=== PATIENT | male | born 1935 | race Caucasian/White ===

== ENCOUNTER 2017-09-09 08:41 | Emergency (ER) | payer MEDICARE, BC ==
[2017-09-09] MEDS ORDERED: Aspirin 81 MG Tab.Chew PO ONE (08:57)
--- NOTE | 2017-09-09 08:59 | EDM.PDOC ---
ED HPI GENERAL MEDICAL PROBLEM - General Chief Complaint: Chest Pain Stated Complaint: [facility] Time Seen by Provider: 09/09/17 08:48 Source of Information: Reports: Patient History Limitations: Reports: No Limitations - History of Present Illness INITIAL COMMENTS - FREE TEXT/NARRATIVE: 82-year-old male presents the ED with central chest pain that radiates perhaps slightly up towards the sternal notch in his neck. Nothing through to his back or arm or shoulder. Patient was well some chest discomfort last night before going to bed but it was able to fall asleep. It is just a little heavier this morning. He has not eaten any breakfast yet. Has not taken any of his normal medications. Does have a history of GERD but no recent real problems with reflux disease. He does report that he is under a great deal of stress as of late. He has a type II diabetic controlled with metformin. Onset: Gradual Onset Date: 09/08/17 Onset Time: 21:30 Duration: Hour(s):, Constant Location: Reports: Chest (Mostly in the central chest.) Quality: Reports: Ache, Burning Severity: Moderate Improves with: Reports: None Worsens with: Reports: Movement Context: Denies: Activity, Exercise (Perhaps movement makes a difference.), Lifting, Sick Contact, Trauma, Other Associated Symptoms: Reports: Chest Pain, Malaise. 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: Other (see below) Chest Pain Score (Numeric/FACES): 5 - Related Data Allergies Allergy/AdvReac Type Severity Reaction Status Date / Time No Known Allergies Allergy Verified 09/09/17 08:46 Home Meds: Home Meds Mirtazapine [Remeron] 15 mg PO BEDTIME 09/18/14 [History] metFORMIN [Glucophage] 250 mg PO BID 09/18/14 [History] Aspirin 81 mg PO DAILY 06/20/16 [History] Colesevelam HCl [Welchol] 1,875 mg PO BID 06/20/16 [History] Docusate Sodium [DOK] 250 mg PO BID 06/20/16 [History] Fish Oil/[place]-3 Fatty Acids [Fish Oil 1,000 MG] 1,000 mg PO BID 06/20/16 [ History] Furosemide [Lasix] 20 mg PO DAILY 06/20/16 [History] Clopidogrel [Plavix] 75 mg PO DAILY 09/09/17 [History] Levothyroxine [Synthroid] 50 mcg PO ACBREAKFAST 09/09/17 [History] Sertraline [Zoloft] 25 mg PO DAILY 09/09/17 [History] Ubidecarenone [Co Q-10] 100 mg PO DAILY 09/09/17 [History] Past Medical History HEENT History: Reports: Cataract, Hard of Hearing, Other (See Below) Other HEENT History: ear aches and cleansing Cardiovascular History: Reports: High Cholesterol, Hypertension Other Cardiovascular History: Hx of Carotid Artery Disease with Lt. 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 Endocrine/Metabolic History: Reports: Diabetes, Type II - Infectious Disease History Infectious Disease History: Reports: Measles - Past Surgical History Cardiovascular Surgical History: Reports: Carotid Endarterectomy GI Surgical History: Reports: Other (See Below) Musculoskeletal Surgical History: Reports: Hip Replacement, Shoulder Surgery Social & Family History - Family History Family Medical History: Noncontributory - Tobacco Use Smoking Status *Q: Former Smoker Years of Tobacco use: 17 Used Tobacco, but Quit: Yes Month Tobacco Last Used: 53 years ago Second Hand Smoke Exposure: No - Alcohol Use Days Per Week of Alcohol Use: 1 Number of Drinks Per Day: 1 Total Drinks Per Week: 1 - Recreational Drug Use Recreational Drug Use: No - Living Situation & Occupation Living situation: Reports: 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 Denies : Fever, Chills, Weight Loss HEENT: Reports: Glasses Respiratory: Denies: Shortness of Breath, Wheezing, Pleuritic Chest Pain, Cough , Sputum, Hemoptysis, Other Cardiovascular: Reports: Chest Pain, Blood Pressure Problem (See history present illness), Dyspnea on Exertion (Mild in both lower extremities), Edema. Denies: Claudication, Lightheadedness, Orthopnea ( controlled with medication), Palpitations ( chronically) Endocrine: Reports: Fatigue GI/Abdominal: Reports: Constipation : Reports: Frequency, Other (nocturia 3) Musculoskeletal: Reports: Neck Pain, Back Pain Skin: Reports: No Symptoms Neurological: Denies: Confusion, Dizziness, Headache, Paresthesia, Pre-Existing Deficit, Seizure, Syncope, Tremors, Trouble Speaking, Difficulty Walking, Weakness Psychiatric: Reports: Anxiety Hematologic/Lymphatic: Reports: No Symptoms Immunologic: Reports: No Symptoms ED EXAM, GENERAL - Physical Exam Exam: See Below Exam Limited By: No Limitations General Appearance: Alert, WD/WN, Anxious (Mildly anxious.) Eye Exam: Bilateral Eye: Normal Inspection Throat/Mouth: Normal Inspection, Normal Lips, Normal Oropharynx Head: Atraumatic, Normocephalic Neck: Normal Inspection, Supple, Non-Tender, Full Range of Motion. No: Lymphadenopathy (L), Lymphadenopathy (R), Thyromegaly Respiratory/Chest: No Respiratory Distress, Lungs Clear, Decreased Breath Sounds. No: Rales, Rhonchi (Decreased breath sounds lower 20% of lung [place].) , Wheezing Cardiovascular: Regular Rate, Rhythm, No Edema, No Gallop, No Murmur, No Rub. No: Normal Peripheral Pulses Peripheral Pulses: 1+: Posterior Tibial (L), Posterior Tibial (R), Dorsalis Pedis (L), Dorsalis Pedis (R) GI/Abdominal: Other (Abdomen is moderately obese and distended. Is firm to palpation. No previous cholecystectomy scar noted. Nontender. Bowel sounds are normal.) Back Exam: Normal Inspection, Full Range of Motion. No: CVA Tenderness (L), CVA Tenderness (R) Extremities: Normal Inspection, Normal Range of Motion, Non-Tender, Pedal Edema Neurological: Alert, Oriented (2+ pitting edema bilaterally.), CN II-XII Intact , Normal Cognition Psychiatric: Normal Affect, Normal Mood Skin Exam: Warm, Dry, Intact, Normal Color, No Rash EKG INTERPRETATION EKG Date: 09/09/17 Time: 08:45 Rhythm: NSR Rate (Beats/Min): 72 [place]: Normal P-Wave: Present (First-degree AV block.) QRS: Other (Early R-wave transition with poor R-wave progression. There is Q waves in leads 3 and perhapnear Q-wave in aVF consider an old infarction in the inferior wall. Decreased voltage throughout the limb leads. Abnormal ECG.) Course - Vital Signs Last Recorded V/S: Last Vital Signs Temp 35.8 C 09/09/17 08:46 Pulse 67 09/09/17 11:00 Resp 14 09/09/17 11:00 BP 126/75 09/09/17 10:46 Pulse Ox 95 09/09/17 11:00 - Orders/Labs/Meds Orders: Active Orders 24 hr Category Date Time Status EKG Documentation Completion [RC] STAT Care 09/09/17 08:58 Active Chest 1V Frontal [CR] Stat Exams 09/09/17 08:58 Taken Sodium Chloride 0.9% [Normal Saline] 1,000 ml Med 09/09/17 09:00 Active IV ASDIRECTED Medication Orders Sodium Chloride (Normal Saline) 1,000 mls @ 100 mls/hr IV ASDIRECTED SURESH Last Admin: 09/09/17 10:14 Dose: 100 mls/hr Labs: Laboratory Tests 09/09/17 09/09/17 09/09/17 Range/Units 08:50 08:50 08:50 WBC 5.38 (4.23-9.07) K/mm3 RBC 4.58 L (4.63-6.08) M/mm3 Hgb 15.2 (13.7-17.5) gm/L Hct 44.4 (40.1-51.0) % MCV 96.9 H (79.0-92.2) fl MCH 33.2 H (25.7-32.2) pg MCHC 34.2 (32.2-35.5) g/dl RDW Std Deviation 48.3 H (35.1-43.9) fL Plt Count 155 L (163-337) K/mm3 MPV 11.2 (9.4-12.3) fl Neutrophils % (Manual) 45 (40-60) % Band Neutrophils % 0 (0-10) % Lymphocytes % (Manual) 40 (20-40) % Atypical Lymphs % 0 % Monocytes % (Manual) 8 (2-10) % Eosinophils % (Manual) 6 (0.8-7.0) % Basophils % (Manual) 1 (0.2-1.2) Platelet Estimate Adequate RBC Morph Comment Normal PT 10.2 (8.0-13.0) SECONDS INR 0.94 Sodium 142 (136-145) mEq/L Potassium 4.3 (3.5-5.1) mEq/L Chloride 107 (98-107) mEq/L Carbon Dioxide 26 (21-32) mEq/L Anion Gap 13.3 (5-15) BUN 14 (7-18) mg/dL Creatinine 1.2 (0.7-1.3) mg/dL Est Cr Clr Drug Dosing TNP Estimated GFR (MDRD) 58 (>60) mL/min BUN/Creatinine Ratio 11.7 L (14-18) Glucose 156 H (83-115) mg/dL Calcium 9.8 (8.5-10.1) mg/dL Magnesium 1.8 (1.8-2.4) mg/dl Total Bilirubin 0.7 (0.2-1.0) mg/dL AST 29 (15-37) U/L ALT 40 (16-63) U/L Alkaline Phosphatase 63 (46-116) U/L CK-MB (CK-2) 1.7 (0-3.6) ng/ml Troponin I < 0.017 (0.00-0.056) ng/mL C-Reactive Protein 0.5 (<1.0) mg/dL NT-Pro-B Natriuret Pep 48 (0-450) pg/mL Total Protein 6.9 (6.4-8.2) g/dl Albumin 3.6 (3.4-5.0) g/dl Globulin 3.3 gm/dL Albumin/Globulin Ratio 1.1 (1-2) Meds: Medications Generic Name Dose Route Start Last Admin Trade Name Freq PRN Reason Stop Dose Admin Sodium Chloride 1,000 mls @ 100 mls/hr 09/09/17 09:00 09/09/17 10:14 Normal Saline IV 100 mls/hr ASDIRECTED SURESH Administration Discontinued Medications Generic Name Dose Route Start Last Admin Trade Name Freq PRN Reason Stop Dose Admin Aspirin 324 mg 09/09/17 08:57 09/09/17 10:12 Aspirin PO 09/09/17 08:58 324 mg ONETIME ONE Administration Nitroglycerin/Dextrose 25 mg in 250 mls @ 6 mls/hr 09/09/17 09:00 09/09/17 10 :15 Nitroglycerin 25 Mg/D5w 250 Ml IV 10 mcg/min TITRATE SURESH 6 mls/hr 10 MCG/MIN Administration - Radiology Interpretation Free Text/Narrative:: 82-year-old male presents the ED for evaluation of central chest pain. Examination is normal. ECG shows sinus rhythm at 72/m with early R-wave transition and poor R-wave progression. There is a Q-wave in 3 and near Q-wave in aVF suggesting possibility of an old inferior wall myocardial infarction. No acute ischemic changes are identified. There is decreased voltage throughout the limb leads due to thick chest. Plan IV normal saline at 150 mils per hour. Routine labs including cardiac markers and a chest x-ray to be done. Will be given aspirin 325 mg chewed and nitroglycerin drip will be started at 10 mcg/m. - Re-Assessments/Exams Free Text/Narrative Re-Assessment/Exam: 09/09/17 10:20 Lab reveals a white count of 5.38 with a hemoglobin of 15.2 MCV is slightly elevated at 96.9 platelet count 155,000. Differentials 45% neutrophils no bands cells. PT is 10.2 with INR of 0.94. Sodium 142 potassium 4.3. Toward 17 bicarbonate 26. And a gap is 13.3. Creatinine is 1.2 with an E GFR of 58.. Glucose is 156. Calcium 9.8 magnesium low normal at 1.8. Liver function normal. CK-MB fraction is 1.7 with a troponin I of less than 0.017. C- reactive protein is less than 0.5 BNP is only 48. Chest x-ray reveals a tortuous thoracic aorta. Rotated slightly to the right side. There is blunting of both costophrenic angle suggesting mild small pleural effusions. There is mild cardiomegaly. Nitro drip will be discontinued at this time. 09/09/17 10:41 reports no chest pain at this time. Will discontinue the nitroglycerin drip since enzymes are normal and chest pain was there since last night essentially he is ruled out. I will have him up walking the hallway to see we can make the chest pain worse case he has an unstable angina problem. Impression is that this is most likely stress related and perhaps some GI relationship. He has a issue with chronic constipation and is quite obese. It is quite possible that he has a hiatal hernia. 09/09/17 11:24 he walked while in the hallway with no recurrence of chest pain off the nitro drip. Will be discharged home at this time. 09/09/17 11:25 Departure - Departure Time of Disposition: 11:16 Disposition: Home, Self-Care 01 Condition: Fair Clinical Impression: Non-cardiac chest pain Instructions: Nonspecific Chest Pain Referrals: Gerardo Jesus MD [Primary Care Provider] - Forms: ED Department Discharge Additional Instructions: Evaluation the emergency room today in regards to central chest pressure discomfort first noted last night but still present this morning and perhaps a little bit worse. Therefore complete cardiac workup was carried out . It turned out to be good news in terms of normal ECG chest x-ray reveals a slightly enlarged heart at no extra fluid within the lungs and no signs of heart attack by cardiac markers. Therefore the chest pain is not of heart origin. The lungs themselves appear to be clear. As you mentioned current level of stress is very high and may be contributing to chest pain since are no signs or symptoms of estrogen soft to reflux disease to be causing central chest pain etc. Monitor how often the chest pain comes and if it continues follow-up with your personal physician is advised - My Orders Last 24 Hours: My Active Orders 09/09/17 08:58 EKG Documentation Completion [RC] STAT Chest 1V Frontal [CR] Stat 09/09/17 09:00 Sodium Chloride 0.9% [Normal Saline] 1,000 ml IV ASDIRECTED - Assessment/Plan Last 24 Hours: My Active Orders 09/09/17 08:58 EKG Documentation Completion [RC] STAT Chest 1V Frontal [CR] Stat 09/09/17 09:00 Sodium Chloride 0.9% [Normal Saline] 1,000 ml IV ASDIRECTED
[2017-09-09] MEDS ORDERED: Sodium Chloride 0.9% 1,000 ML IV SCH (09:00)
[2017-09-09] MEDS ORDERED: Nitroglycerin/D5W 25 MG/250 ML BOTTLE IV SCH (09:00)
[2017-09-09 11:10] VITALS: BP 126/75
--- NOTE | 2017-09-09 11:57 | CR ---
Chest: Portable view of the chest was obtained. Comparison: Prior chest x-ray of 06/20/16. Heart size at the upper limits of normal. Tortuous thoracic aorta is seen. Lungs are clear without acute infiltrates. Bony structures are grossly intact. Impression: 1. Nothing acute is seen on portable chest x-ray. Diagnostic code #1
== END 2017-09-09 11:32 | disposition home or self-care (01) ==
LOC: JD.ED 08:41 → SUPCPDRO 08:41 → JD.ED 11:32
DX: R07.89 Other chest pain (principal); I10 Essential (primary) hypertension; E11.9 Type 2 diabetes mellitus without complications; Z79.82 Long term (current) use of aspirin; Z79.899 Other long term (current) drug therapy; Z87.891 Personal history of nicotine dependence
CPT/HCPCS: 36415; 71010; 80053; 82553; 83735; 83880; 84484; 85025; 85610; 86140; 93005; 96361; 96365; 99285; A9270; J7040; 93010; 99284

== ENCOUNTER 2018-02-15 14:02 | Emergency (ER) | payer MEDICARE, BC ==
[2018-02-15 14:13] VITALS: BP 155/70
[2018-02-15] MEDS ORDERED: Sodium Chloride 0.9% 10 ML Syringe FLUSH PRN (14:21)
--- NOTE | 2018-02-15 16:00 | EDM.PDOC ---
ED HPI GENERAL MEDICAL PROBLEM - General Chief Complaint: Chest Pain Stated Complaint: RESPIRATORY ISSUES Time Seen by Provider: 02/15/18 14:03 Source of Information: Reports: Patient, Family History Limitations: Reports: No Limitations - History of Present Illness INITIAL COMMENTS - FREE TEXT/NARRATIVE: The patient presents with chest pain and shortness of breath. He says the increased shortness of breath has been going on for a few months. Five days ago he noticed some heaviness in the chest that comes and goes. He also has a slight cough with some phlegm. He has no fever or chills but he is worried this is like pneumonia that he had before. He has no swelling or pain in his legs. He has no abdominal pain nausea or vomiting. Onset: Gradual Duration: Week(s): Location: Reports: Chest Quality: Reports: Other (Heaviness) Severity: Mild Improves with: Reports: None Worsens with: Reports: None Associated Symptoms: Reports: Chest Pain, Cough, cough w sputum, Shortness of Breath. Denies: Fever/Chills, Headaches, Nausea/Vomiting Chest Pain Score (Numeric/FACES): 5 - Related Data Allergies Allergy/AdvReac Type Severity Reaction Status Date / Time atorvastatin [From Lipitor] Allergy Other Verified 02/15/18 14:38 rosuvastatin [From Crestor] Allergy Other Verified 02/15/18 14:38 Home Meds: Home Meds Mirtazapine [Remeron] 15 mg PO BEDTIME 09/18/14 [History] metFORMIN [Glucophage] 250 mg PO BID 09/18/14 [History] Aspirin 81 mg PO DAILY 06/20/16 [History] Colesevelam HCl [Welchol] 3 tab PO BID 06/20/16 [History] Docusate Sodium [DOK] 250 mg PO BID 06/20/16 [History] Fish Oil/[place]-3 Fatty Acids [Fish Oil 1,000 MG] 1,000 mg PO BID 06/20/16 [ History] Furosemide [Lasix] 20 mg PO DAILY 06/20/16 [History] Clopidogrel [Plavix] 75 mg PO DAILY 09/09/17 [History] Levothyroxine [Synthroid] 50 mcg PO ACBREAKFAST 09/09/17 [History] Sertraline [Zoloft] 25 mg PO DAILY 09/09/17 [History] Ubidecarenone [Co Q-10] 100 mg PO DAILY 09/09/17 [History] Multivitamin [Multivitamins] 1 tab PO DAILY 02/15/18 [History] Nitroglycerin 0.4 g SL ASDIRECTED PRN 02/15/18 [History] Polyethylene Glycol 3350 [MiraLAX] 1 - 2 tbsp PO DAILY PRN 02/15/18 [History] Rosuvastatin [Crestor] 5 mg PO MOWEFR 02/15/18 [History] Past Medical History HEENT History: Reports: Cataract, Hard of Hearing, Other (See Below) Other HEENT History: ear aches and cleansing Cardiovascular History: Reports: High Cholesterol, Hypertension Other Cardiovascular History: Hx of Carotid Artery Disease with Lt. 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 Endocrine/Metabolic History: Reports: Diabetes, Type II - Infectious Disease History Infectious Disease History: Reports: Measles - Past Surgical History Head Surgeries/Procedures: Reports: None Cardiovascular Surgical History: Reports: Carotid Endarterectomy GI Surgical History: Reports: Other (See Below) Musculoskeletal Surgical History: Reports: Hip Replacement, Shoulder Surgery Social & Family History - Family History Family Medical History: Noncontributory - Tobacco Use Smoking Status *Q: Former Smoker Years of Tobacco use: 17 Used Tobacco, but Quit: Yes Month/Year Tobacco Last Used: 54 years ago Second Hand Smoke Exposure: No - Caffeine Use Caffeine Use: Reports: None - Alcohol Use Days Per Week of Alcohol Use: 1 Number of Drinks Per Day: 1 Total Drinks Per Week: 1 - Recreational Drug Use Recreational Drug Use: No - Living Situation & Occupation 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 situation: 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: 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 - Review of Systems Review Of Systems: See Below Constitutional: Reports: No Symptoms HEENT: Reports: No Symptoms Respiratory: Reports: Shortness of Breath, Cough, Sputum Cardiovascular: Reports: Chest Pain Endocrine: Reports: No Symptoms GI/Abdominal: Reports: No Symptoms : Reports: No Symptoms Musculoskeletal: Reports: No Symptoms ED EXAM, GENERAL - Physical Exam Exam: See Below Exam Limited By: No Limitations General Appearance: Alert, No Apparent Distress Ears: Normal External Exam Nose: Normal Inspection Head: Atraumatic, Normocephalic Neck: Normal Inspection Respiratory/Chest: No Respiratory Distress, Lungs Clear, Normal Breath Sounds Cardiovascular: Regular Rate, Rhythm, No Edema, No Murmur GI/Abdominal: Soft, Non-Tender, No Organomegaly, No Mass Back Exam: Normal Inspection Extremities: Normal Inspection EKG INTERPRETATION EKG Date: 02/15/18 Time: 14:18 Rhythm: NSR Rate (Beats/Min): 65 [place]: Normal P-Wave: Present QRS: Normal ST-T: Normal QT: Normal Course - Vital Signs Last Recorded V/S: Last Vital Signs Temp 97 F 02/15/18 14:09 Pulse 66 02/15/18 14:09 Resp 20 02/15/18 14:09 BP 155/70 H 02/15/18 14:09 Pulse Ox 98 02/15/18 14:09 - Orders/Labs/Meds Orders: Active Orders 24 hr Category Date Time Status Cardiac Monitoring [RC] . DIRECTED Care 02/15/18 14:21 Active EKG Documentation Completion [RC] STAT Care 02/15/18 14:22 Active Oxygen Therapy [RC] PRN Care 02/15/18 14:21 Active Peripheral IV Care [RC] . DIRECTED Care 02/15/18 14:22 Active Chest 1V Frontal [CR] Stat Exams 02/15/18 14:22 Taken Sodium Chloride 0.9% [Saline Flush] Med 02/15/18 14:21 Active 10 ml FLUSH ASDIRECTED PRN Peripheral IV Insertion Adult [OM.PC] Stat Oth 02/15/18 14:21 Ordered Medication Orders Sodium Chloride (Saline Flush) 10 ml FLUSH ASDIRECTED PRN PRN Reason: Keep Vein Open Last Admin: 02/15/18 14:35 Dose: 10 ml Labs: Laboratory Tests 02/15/18 02/15/18 02/15/18 Range/Units 14:30 14:30 14:30 WBC 4.12 L (4.23-9.07) K/mm3 RBC 4.17 L (4.63-6.08) M/mm3 Hgb 13.7 (13.7-17.5) gm/L Hct 40.8 (40.1-51.0) % MCV 97.8 H (79.0-92.2) fl MCH 32.9 H (25.7-32.2) pg MCHC 33.6 (32.2-35.5) g/dl RDW Std Deviation 48.2 H (35.1-43.9) fL Plt Count 143 L (163-337) K/mm3 MPV 11.0 (9.4-12.3) fl Neut % (Auto) 38.1 (34.0-67.9) % Lymph % (Auto) 37.1 (21.8-53.1) % [place] % (Auto) 18.2 H (5.3-12.2) % Eos % (Auto) 5.6 (0.8-7.0) Baso % (Auto) 1.0 (0.1-1.2) % Neut # (Auto) 1.57 L (1.78-5.38) K/mm3 Lymph # (Auto) 1.53 (1.32-3.57) K/mm3 [place] # (Auto) 0.75 (0.30-0.82) K/mm3 Eos # (Auto) 0.23 (0.04-0.54) K/mm3 Baso # (Auto) 0.04 (0.01-0.08) K/mm3 Manual Slide Review Normal smear Sodium 139 (136-145) mEq/L Potassium 4.2 (3.5-5.1) mEq/L Chloride 105 (98-107) mEq/L Carbon Dioxide 25 (21-32) mEq/L Anion Gap 13.2 (5-15) BUN 17 (7-18) mg/dL Creatinine 1.2 (0.7-1.3) mg/dL Est Cr Clr Drug Dosing 46.64 mL/min Estimated GFR (MDRD) 58 (>60) mL/min BUN/Creatinine Ratio 14.2 (14-18) Glucose 197 H (83-115) mg/dL Calcium 9.3 (8.5-10.1) mg/dL Total Bilirubin 0.5 (0.2-1.0) mg/dL AST 30 (15-37) U/L ALT 36 (16-63) U/L Alkaline Phosphatase 57 (46-116) U/L Troponin I < 0.017 (0.00-0.056) ng/mL NT-Pro-B Natriuret Pep 63 (0-450) pg/mL Total Protein 6.3 L (6.4-8.2) g/dl Albumin 3.4 (3.4-5.0) g/dl Globulin 2.9 gm/dL Albumin/Globulin Ratio 1.2 (1-2) Meds: Medications Generic Name Dose Route Start Last Admin Trade Name Darvinq PRN Reason Stop Dose Admin Sodium Chloride 10 ml 02/15/18 14:21 02/15/18 14:35 Saline Flush FLUSH 10 ml ASDIRECTED PRN Administration Keep Vein Open - Re-Assessments/Exams Free Text/Narrative Re-Assessment/Exam: 02/15/18 16:02 I ordered an IV saline lock, EKG, CXR, and labs. His EKG shows a NSR with no acute changes. His CXR shows cardiomegaly with no congestive changes or infiltrates. His WBC was low at 4.12. His platelet count was a little low at 143. His CMP looks good. His troponin is negative. He was telling me later that he has been blanking out in conversations at time and he feels some numbness around his lips at times. 02/15/18 16:[address] shows generalized atrophy. 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 No acute intracranial abnormality is identified. He feels better. I will discharge him home and follow up with Dr Jesus. Please send a copy of this dictation to Dr Jesus. Departure - Departure Time of Disposition: 16:45 Disposition: Home, Self-Care 01 Condition: Good Clinical Impression: Atypical chest pain, Shortness of breath Referrals: Gerardo Jesus MD [Primary Care Provider] - 1 Week Forms: ED Department Discharge Additional Instructions: Take your medication as prescribed. Follow up with Dr Jesus. Please return if you are worse. - My Orders Last 24 Hours: My Active Orders 02/15/18 14:21 Cardiac Monitoring [RC] . DIRECTED Oxygen Therapy [RC] PRN Sodium Chloride 0.9% [Saline Flush] 10 ml FLUSH ASDIRECTED PRN Peripheral IV Insertion Adult [OM.PC] Stat 02/15/18 14:22 EKG Documentation Completion [RC] STAT Peripheral IV Care [RC] . DIRECTED Chest 1V Frontal [CR] Stat - Assessment/Plan Last 24 Hours: My Active Orders 02/15/18 14:21 Cardiac Monitoring [RC] . DIRECTED Oxygen Therapy [RC] PRN Sodium Chloride 0.9% [Saline Flush] 10 ml FLUSH ASDIRECTED PRN Peripheral IV Insertion Adult [OM.PC] Stat 02/15/18 14:22 EKG Documentation Completion [RC] STAT Peripheral IV Care [RC] . DIRECTED Chest 1V Frontal [CR] Stat
--- NOTE | 2018-02-15 16:20 | CT ---
Head CT Technique: Multiple axial sections through the brain were obtained. Intravenous contrast was not utilized. Comparison: Prior MRI brain of 06/21/[address] exam of 06/20/16. Old white matter infarct is identified on the left side which appears stable from previous exam. Old lacunar infarct is noted within the white matter within the right frontal region adjacent to the frontal horn. Ventricles are moderately prominent out of proportion to the sulci over the convexities. This is likely due to more central atrophy which is a stable finding. No other abnormal parenchymal densities are seen. No evidence of intracranial hemorrhage. No midline shift or mass effect is seen. No acute calvarial abnormality is seen. Visualized sinus. Sinuses are clear. Impression: 1. Generalized atrophy as described above. 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 No acute intracranial abnormality is identified. Diagnostic code #2
--- NOTE | 2018-02-16 07:36 | CR ---
Chest: Frontal view of the chest was obtained. Comparison: Prior chest x-ray of 09/18/14 and 06/20/16. Heart size within normal limits for technique. Tortuous thoracic aorta is seen. Lungs are clear. Bony structures are grossly intact. Impression: 1. Nothing acute is seen. No appreciable change is seen from prior chest x-ray. Diagnostic code #2
== END 2018-02-15 17:02 | disposition home or self-care (01) ==
LOC: JD.ED 14:02
DX: R07.89 Other chest pain (principal); R06.02 Shortness of breath; E78.00 Pure hypercholesterolemia, unspecified; I10 Essential (primary) hypertension; E11.9 Type 2 diabetes mellitus without complications; Z88.8 Allergy status to other drugs, medicaments and biological substances; Z79.84 Long term (current) use of oral hypoglycemic drugs; Z79.82 Long term (current) use of aspirin; Z79.899 Other long term (current) drug therapy; Z87.891 Personal history of nicotine dependence; R20.0 Anesthesia of skin
CPT/HCPCS: 36415; 70450; 71045; 80053; 83880; 84484; 85025; 93005; 99285; J7050; 93010; 99284-25

== ENCOUNTER 2018-10-25 10:41 | Emergency (ER) | payer MEDICARE, BC ==
[2018-10-25 10:54] VITALS: BP 154/84
--- NOTE | 2018-10-25 11:15 | EDM.PDOC ---
ED HPI GENERAL MEDICAL PROBLEM - General Chief Complaint: Chest Pain Stated Complaint: CHEST PAIN Time Seen by Provider: 10/25/18 10:51 Source of Information: Reports: Patient, RN Notes Reviewed History Limitations: Reports: No Limitations - History of Present Illness INITIAL COMMENTS - FREE TEXT/NARRATIVE: Patient is an 83 year old male who is a resident of [facility], that presents to the ED via family members for the evaluation of chest pressure. He notes this to be in the middle of his chest. It is not necessarily painful, just feels like pressure. This does not radiate anywhere. He states that when he burps it makes it feel better. There is nothing that really makes this worse, although it is more bothersome in the AM after waking and gets better as the day goes on. This has been going on for around 6 months. He states that he sees Dr. Gerardo Jesus as a PCP and he has recently stopped most of his medications; which include levothyroxine, metformin, etc. He denies any fever/chills, nausea/vomiting/diarrhea, abdominal pain, or shortness of breath. He states that he feels a little constipated as well. - Related Data Allergies Allergy/AdvReac Type Severity Reaction Status Date / Time atorvastatin [From Lipitor] Allergy Other Verified 02/15/18 14:38 rosuvastatin [From Crestor] Allergy Other Verified 02/15/18 14:38 Home Meds: Home Meds Aspirin 81 mg PO DAILY 06/20/16 [History] Docusate Sodium [DOK] 250 mg PO BID 06/20/16 [History] Fish Oil/[place]-3 Fatty Acids [Fish Oil 1,000 MG] 1,000 mg PO BID 06/20/16 [ History] Ubidecarenone [Co Q-10] 100 mg PO DAILY 09/09/17 [History] Multivitamin [Multivitamins] 1 tab PO DAILY 02/15/18 [History] Polyethylene Glycol 3350 [MiraLAX] 1 - 2 tbsp PO DAILY PRN 02/15/18 [History] Rosuvastatin [Crestor] 10 mg PO MOWEFR 02/15/18 [History] Past Medical History HEENT History: Reports: Cataract, Hard of Hearing, Other (See Below) Other HEENT History: ear aches and cleansing Cardiovascular History: Reports: High Cholesterol, Hypertension Other Cardiovascular History: Hx of Carotid Artery Disease with Lt. 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 Endocrine/Metabolic History: Reports: Diabetes, Type II, Hypothyroidism Hematologic History: Reports: Anticoagulation Therapy - Infectious Disease History Infectious Disease History: Reports: Measles - Past Surgical History Head Surgeries/Procedures: Reports: None Cardiovascular Surgical History: Reports: Carotid Endarterectomy GI Surgical History: Reports: Other (See Below) Musculoskeletal Surgical History: Reports: Hip Replacement, Shoulder Surgery Social & Family History - Family History Family Medical History: Noncontributory - Caffeine Use Caffeine Use: Reports: None - Living Situation & Occupation Living situation: Reports: 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 - Review of Systems Review Of Systems: See Below Constitutional: Denies: Fever, Chills HEENT: Reports: No Symptoms Respiratory: Denies: Shortness of Breath, Cough Cardiovascular: Reports: Chest Pain (mid sternal to epigastric pain) Endocrine: Reports: No Symptoms GI/Abdominal: Reports: No Symptoms : Reports: No Symptoms Musculoskeletal: Reports: No Symptoms Skin: Reports: No Symptoms Neurological: Reports: No Symptoms Psychiatric: Reports: No Symptoms Hematologic/Lymphatic: Reports: No Symptoms Immunologic: Reports: No Symptoms ED EXAM, GENERAL - Physical Exam Exam: See Below Exam Limited By: No Limitations General Appearance: Alert, WD/WN, No Apparent Distress Eye Exam: Bilateral Eye: EOMI, Normal Inspection, PERRL Ears: Normal External Exam Nose: Normal Inspection Throat/Mouth: Normal Inspection, Normal Oropharynx, No Airway Compromise Head: Atraumatic, Normocephalic Neck: Normal Inspection Respiratory/Chest: No Respiratory Distress, Lungs Clear, Normal Breath Sounds, No Accessory Muscle Use, Chest Non-Tender Cardiovascular: Normal Peripheral Pulses, Regular Rate, Rhythm, No Edema, No JVD , No Murmur GI/Abdominal: Normal Bowel Sounds, Soft, No Mass, Distended (mildly, but he states this is normal for him), Tender (over epigastrium). No: Guarding, Rigid , Rebound Extremities: Normal Inspection, Normal Capillary Refill Neurological: Alert, Oriented, Normal Cognition, No Motor/Sensory Deficits Psychiatric: Normal Affect, Normal Mood Skin Exam: Warm, Dry, Intact, Normal Color, No Rash Lymphatic: No Adenopathy EKG INTERPRETATION EKG Date: 10/25/18 Time: 10:49 Rhythm: NSR Rate (Beats/Min): 72 [place]: Normal P-Wave: Present QRS: Normal ST-T: Normal QT: Normal EKG Interpretation Comments: early r wave transition, consider RVH, 1st degree AV block, no acute ischemic changes. Reviewed with Dr. King Course - Vital Signs Last Recorded V/S: Last Vital Signs Temp 98.1 F 10/25/18 10:49 Pulse 75 10/25/18 10:49 Resp 17 10/25/18 10:49 BP 154/84 H 10/25/18 10:49 Pulse Ox 98 10/25/18 10:49 - Orders/Labs/Meds Orders: Active Orders 24 hr Category Date Time Status EKG Documentation Completion [RC] STAT Care 10/25/18 10:55 Active Labs: Laboratory Tests 10/25/18 10/25/18 10/25/18 Range/Units 11:22 11:22 11:22 WBC 4.00 L (4.23-9.07) K/mm3 RBC 4.60 L (4.63-6.08) M/mm3 Hgb 14.9 (13.7-17.5) gm/L Hct 44.9 (40.1-51.0) % MCV 97.6 H (79.0-92.2) fl MCH 32.4 H (25.7-32.2) pg MCHC 33.2 (32.2-35.5) g/dl RDW Std Deviation 49.1 H (35.1-43.9) fL Plt Count 153 L (163-337) K/mm3 MPV 11.3 (9.4-12.3) fl Neutrophils % (Manual) 51 (40-60) % Band Neutrophils % 0 (0-10) % Lymphocytes % (Manual) 27 (20-40) % Atypical Lymphs % 6 % Monocytes % (Manual) 11 H (2-10) % Eosinophils % (Manual) 4 (0.8-7.0) % Basophils % (Manual) 1 (0.2-1.2) Platelet Estimate Decreased Plt Morphology Comment Normal RBC Morph Comment Normal PT 10.4 (9.5-12.1) SECONDS INR 0.95 APTT 25 (24-31) SECONDS D-Dimer, Quantitative 0.92 H (0.19-0.50) mg/L Sodium 139 (136-145) mEq/L Potassium 4.3 (3.5-5.1) mEq/L Chloride 105 (98-107) mEq/L Carbon Dioxide 25 (21-32) mEq/L Anion Gap 13.3 (5-15) BUN 21 H (7-18) mg/dL Creatinine 1.2 (0.7-1.3) mg/dL Est Cr Clr Drug Dosing 47.31 mL/min Estimated GFR (MDRD) 58 (>60) mL/min BUN/Creatinine Ratio 17.5 (14-18) Glucose 288 H (83-115) mg/dL Calcium 9.9 (8.5-10.1) mg/dL Total Bilirubin 0.5 (0.2-1.0) mg/dL AST 19 (15-37) U/L ALT 30 (16-63) U/L Alkaline Phosphatase 71 (46-116) U/L Troponin I < 0.017 (0.00-0.056) ng/mL NT-Pro-B Natriuret Pep (0-450) pg/mL Total Protein 6.6 (6.4-8.2) g/dl Albumin 3.6 (3.4-5.0) g/dl Globulin 3.0 gm/dL Albumin/Globulin Ratio 1.2 (1-2) 10/25/18 Range/Units 11:22 WBC (4.23-9.07) K/mm3 RBC (4.63-6.08) M/mm3 Hgb (13.7-17.5) gm/L Hct (40.1-51.0) % MCV (79.0-92.2) fl MCH (25.7-32.2) pg MCHC (32.2-35.5) g/dl RDW Std Deviation (35.1-43.9) fL Plt Count (163-337) K/mm3 MPV (9.4-12.3) fl Neutrophils % (Manual) (40-60) % Band Neutrophils % (0-10) % Lymphocytes % (Manual) (20-40) % Atypical Lymphs % % Monocytes % (Manual) (2-10) % Eosinophils % (Manual) (0.8-7.0) % Basophils % (Manual) (0.2-1.2) Platelet Estimate Plt Morphology Comment RBC Morph Comment PT (9.5-12.1) SECONDS INR APTT (24-31) SECONDS D-Dimer, Quantitative (0.19-0.50) mg/L Sodium (136-145) mEq/L Potassium (3.5-5.1) mEq/L Chloride (98-107) mEq/L Carbon Dioxide (21-32) mEq/L Anion Gap (5-15) BUN (7-18) mg/dL Creatinine (0.7-1.3) mg/dL Est Cr Clr Drug Dosing mL/min Estimated GFR (MDRD) (>60) mL/min BUN/Creatinine Ratio (14-18) Glucose (83-115) mg/dL Calcium (8.5-10.1) mg/dL Total Bilirubin (0.2-1.0) mg/dL AST (15-37) U/L ALT (16-63) U/L Alkaline Phosphatase (46-116) U/L Troponin I (0.00-0.056) ng/mL NT-Pro-B Natriuret Pep 55 (0-450) pg/mL Total Protein (6.4-8.2) g/dl Albumin (3.4-5.0) g/dl Globulin gm/dL Albumin/Globulin Ratio (1-2) Meds: Medications Discontinued Medications Generic Name Dose Route Start Last Admin Trade Name Freq PRN Reason Stop Dose Admin Magnesium Citrate 296 ml 10/25/18 12:44 10/25/18 13:10 Citrate Of Magnesia PO 10/25/18 12:45 296 ml ONETIME ONE Administration - Re-Assessments/Exams Free Text/Narrative Re-Assessment/Exam: 10/25/18 11:24 Pt presents to the ED for the evaluation of chest pressure. His history and physical suggest that this may be d/t reflux. Due to his DrMonet recently stopping medications; have ordered EKG, chest x-ray, CBC, CMP, d-dimer, BNP, PT/INR, PTT , and troponin for further evaluation. His EKG did not demonstrate any acute changes. 10/25/18 12:20 Labs are back and are unremarkable. His troponin is negative, however his d- dimer is slightly elevated at 0.92, I believe this is incidental. He does not have any tachycardia or acute SOB which would be suggestive of possible PE. His chest x-ray is interpreted as follows: Chest: Portable view of the chest was obtained. Comparison: Previous chest x-ray of 02/15/18 is available. Heart size appears within normal limits for portable technique. Tortuous thoracic aorta is seen. Slight widening of the upper mediastinum is seen which is felt compatible with tortuous great vessels. 2 small adjacent nodules are noted within the left upper chest which are slightly more prominent than on previous exam. Lungs otherwise are clear with no acute parenchymal change. Bony structures are grossly intact. Impression: 1. 2 small nodules within the left upper chest which are slightly more prominent than on previous exam. Noncontrast chest CT could be obtained to see if this is artifact or real. 2. Other incidental findings. Nothing acute is otherwise seen. Will recommend f/u with [facility] for non-contrast CT for outpatient evaluation if he so desires. Will also recommend that he try to sleep with wedge pillow to see if this helps, also an OTC PPI. 10/25/18 12:44 Pt did request something for constipation, 1 bottle of mag citrate will be sent home with patient. Departure - Departure Time of Disposition: 12:28 Disposition: Home, Self-Care 01 Condition: Fair Clinical Impression: Acid reflux Qualifiers: Esophagitis presence: esophagitis presence not specified Qualified Code(s): K21.9 - Gastro-esophageal reflux disease without esophagitis Constipation Qualifiers: Constipation type: unspecified constipation type Qualified Code(s): K59.00 - Constipation, unspecified Instructions: Food Choices for Gastroesophageal Reflux Disease, Adult, Easy-to- Read, Constipation, Adult, [id number], Gastroesophageal Reflux Disease, Adult , [id number] Referrals: Gerardo Jesus MD [Primary Care Provider] - Forms: ED Department Discharge Additional Instructions: You have been evaluated in the ED for the feeling of increased chest pressure. This is likely due to acid reflux, will recommend sleeping with wedge pillow, or with head of bed elevated to see if this doesn't provide some relief. You may try taking an over the counter proton pump inhibitor like omeprazole ( prilosec) this will help reduce the acid level in your stomach. Your Chest x-ray demonstrated 2 nodules in your left lung that may have grown in size since a previous x-ray, Our radiologist recommended non-contrast CT for further evaluation- this may be done on an outpatient basis with Dr. Jesus. Please return to ED if your symptoms change or worsen. - My Orders Last 24 Hours: My Active Orders 10/25/18 10:55 EKG Documentation Completion [RC] STAT - Assessment/Plan Last 24 Hours: My Active Orders 10/25/18 10:55 EKG Documentation Completion [RC] STAT
--- NOTE | 2018-10-25 12:12 | CR ---
Chest: Portable view of the chest was obtained. Comparison: Previous chest x-ray of 02/15/18 is available. Heart size appears within normal limits for portable technique. Tortuous thoracic aorta is seen. Slight widening of the upper mediastinum is seen which is felt compatible with tortuous great vessels. 2 small adjacent nodules are noted within the left upper chest which are slightly more prominent than on previous exam. Lungs otherwise are clear with no acute parenchymal change. Bony structures are grossly intact. Impression: 1. 2 small nodules within the left upper chest which are slightly more prominent than on previous exam. Noncontrast chest CT could be obtained to see if this is artifact or real. 2. Other incidental findings. Nothing acute is otherwise seen. Diagnostic code #9
[2018-10-25] MEDS ORDERED: Magnesium Citrate Solution 296 ML Bottle PO ONE (12:44)
== END 2018-10-25 13:08 | disposition home or self-care (01) ==
LOC: JD.ED 10:41
DX: K21.9 Gastro-esophageal reflux disease without esophagitis (principal); K59.00 Constipation, unspecified; I10 Essential (primary) hypertension; E11.9 Type 2 diabetes mellitus without complications; E03.9 Hypothyroidism, unspecified; Z88.8 Allergy status to other drugs, medicaments and biological substances; Z79.82 Long term (current) use of aspirin; Z79.899 Other long term (current) drug therapy
CPT/HCPCS: 36415; 71045; 80053; 83880; 84484; 85007; 85027; 85379; 85610; 85730; 93005; 99285; A9270

== ENCOUNTER 2021-09-18 13:10 | Emergency (ER) | payer MEDICARE, BC ==
[2021-09-18 14:24] VITALS: BP 123/67; PULSE 66
--- NOTE | 2021-09-18 15:19 | CR ---
Chest: PA and lateral views of the chest were obtained. Comparison: Prior chest x-ray of 10/25/18. Heart size is normal. Tortuous thoracic aorta is seen. Lungs are clear with no acute parenchymal change. Slight degenerative change is scattered within the spine. Osteopenia is present. Prior left shoulder surgery is noted. Impression: 1. Findings as noted above. 2. Nothing acute is seen. Diagnostic code #2
--- NOTE | 2021-09-18 15:45 | EDM.PDOC ---
ED HPI GENERAL MEDICAL PROBLEM - General Chief Complaint: General Stated Complaint: OVERHEATED\\LETHARGIC Time Seen by Provider: 09/18/21 14:18 Source of Information: Reports: Patient, Family, RN Notes Reviewed History Limitations: Reports: No Limitations - History of Present Illness INITIAL COMMENTS - FREE TEXT/NARRATIVE: Patient is a 86-year-old male presenting to the emergency department with his daughter with concerns of generalized fatigue and weakness as well as hot flashes. Patient and daughter state this has been going on for quite some time, however was worse this morning. He lives in an assisted living facility. When he has these hot flashes that the nurses do check his temperature but they are found to be normal. He denies any other complaints. He has had no chest pain, cough, shortness of breath, chills, vomiting, or diarrhea. Patient's daughter reports that approximate 3 weeks ago the assisted living took over his medication management. Prior to that he likely was not getting his levothyroxine every day and for the last 3 weeks he has been. She is questioning if his thyroid level could be off. He has an appointment scheduled with Dr. Stanley who is covering for his primary care provider on Friday. - Related Data Allergies Allergy/AdvReac Type Severity Reaction Status Date / Time atorvastatin [From Lipitor] Allergy Severe Other Verified 09/18/21 14:17 rosuvastatin [From Crestor] Allergy Severe Other Verified 09/18/21 14:17 Home Meds: Home Meds Aspirin 81 mg PO DAILY 06/20/16 [History] Docusate Sodium [DOK] 250 mg PO BID 06/20/16 [History] Fish Oil/[place]-3 Fatty Acids [Fish Oil 1,000 MG] 1,000 mg PO BID 06/20/16 [History] Ubidecarenone [Co Q-10] 100 mg PO DAILY 09/09/17 [History] Multivitamin [Multivitamins] 1 tab PO DAILY 02/15/18 [History] Rosuvastatin [Crestor] 10 mg PO MOWEFR 02/15/18 [History] polyethylene glycoL 3350 [MiraLAX] 1 - 2 tbsp PO DAILY PRN 02/15/18 [History] Past Medical History HEENT History: Reports: Cataract, Hard of Hearing, Other (See Below) Other HEENT History: ear aches and cleansing Cardiovascular History: Reports: High Cholesterol, Hypertension Other Cardiovascular History: Hx of Carotid Artery Disease with Lt. 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 Endocrine/Metabolic History: Reports: Diabetes, Type II, Hypothyroidism Hematologic History: Reports: Anticoagulation Therapy - Infectious Disease History Infectious Disease History: Reports: Measles, Novel Coronavirus - Past Surgical History Head Surgeries/Procedures: Reports: None Cardiovascular Surgical History: Reports: Carotid Endarterectomy GI Surgical History: Reports: Other (See Below) Other GI Surgeries/Procedures: gallstones removed Musculoskeletal Surgical History: Reports: Hip Replacement, Shoulder Surgery Social & Family History - Family History Family Medical History: No Pertinent Family History - Tobacco Use Tobacco Use Status *Q: Former Tobacco User Used Tobacco, but Quit: Yes Month/Year Tobacco Last Used: 10 yrs - Caffeine Use Caffeine Use: Reports: Coffee - Recreational Drug Use Recreational Drug Use: No - Living Situation & Occupation Living situation: Reports: 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 - Review of Systems Review Of Systems: See Below Constitutional: Reports: Weakness, Fatigue, Other ("Foot feels hot") HEENT: Reports: No Symptoms Respiratory: Reports: No Symptoms. Denies: Shortness of Breath, Cough Cardiovascular: Reports: No Symptoms. Denies: Chest Pain Endocrine: Reports: No Symptoms GI/Abdominal: Reports: No Symptoms : Reports: No Symptoms Musculoskeletal: Reports: No Symptoms Skin: Reports: No Symptoms Neurological: Reports: No Symptoms. Denies: Confusion, Dizziness Psychiatric: Reports: No Symptoms Hematologic/Lymphatic: Reports: No Symptoms Immunologic: Reports: No Symptoms ED EXAM, GENERAL - Physical Exam Exam: See Below Exam Limited By: No Limitations General Appearance: Alert, WD/WN, No Apparent Distress Respiratory/Chest: No Respiratory Distress, Lungs Clear, Normal Breath Sounds, No Accessory Muscle Use, Chest Non-Tender Cardiovascular: Normal Peripheral Pulses, Regular Rate, Rhythm, No Edema, No Gallop, No JVD, No Murmur, No Rub GI/Abdominal: Normal Bowel Sounds, Soft, Non-Tender, No Organomegaly, No Abnormal Bruit, No Mass Extremities: Normal Inspection, Normal Range of Motion, Non-Tender, Normal Capillary Refill, Other (1+ bilateral lower extremity pitting edema.) Neurological: Alert, Oriented, CN II-XII Intact, Normal Cognition, Normal Reflexes, No Motor/Sensory Deficits Psychiatric: Normal Affect, Normal Mood Skin Exam: Warm, Dry, Intact, Normal Color, No Rash Course - Vital Signs Last Recorded V/S: Last Vital Signs Temp 97.3 F 09/18/21 14:21 Pulse 66 09/18/21 14:21 Resp 20 09/18/21 14:21 BP 123/67 09/18/21 14:21 Pulse Ox 95 09/18/21 14:21 - Orders/Labs/Meds Labs: Laboratory Tests 09/18/21 09/18/21 09/18/21 Range/Units 15:12 15:12 15:55 WBC 4.70 (4.23-9.07) K/mm3 RBC 4.27 L (4.63-6.08) M/mm3 Hgb 14.2 (13.7-17.5) gm/dl Hct 43.2 (40.1-51.0) % MCV 101.2 H D (79.0-92.2) fl MCH 33.3 H (25.7-32.2) pg MCHC 32.9 (32.2-35.5) g/dl RDW Std Deviation 50.2 H (35.1-43.9) fL Plt Count 183 (163-337) K/mm3 MPV 11.4 (9.4-12.3) fl Neut % (Auto) 44.9 (34.0-67.9) % Lymph % (Auto) 31.3 (21.8-53.1) % [place] % (Auto) 15.5 H (5.3-12.2) % Eos % (Auto) 7.2 H (0.8-7.0) Baso % (Auto) 1.1 (0.1-1.2) % Neut # (Auto) 2.11 (1.78-5.38) K/mm3 Lymph # (Auto) 1.47 (1.32-3.57) K/mm3 [place] # (Auto) 0.73 (0.30-0.82) K/mm3 Eos # (Auto) 0.34 (0.04-0.54) K/mm3 Baso # (Auto) 0.05 (0.01-0.08) K/mm3 Sodium 139 (136-145) mEq/L Potassium 4.7 (3.5-5.1) mEq/L Chloride 104 (98-107) mEq/L Carbon Dioxide 29 (21-32) mEq/L Anion Gap 10.7 (5-15) BUN 23 H (7-18) mg/dL Creatinine 1.6 H (0.7-1.3) mg/dL Est Cr Clr Drug Dosing 32.53 mL/min Estimated GFR (MDRD) 41 (>60) mL/min BUN/Creatinine Ratio 14.4 (14-18) Glucose 188 H (70-99) mg/dL Calcium 8.9 (8.5-10.1) mg/dL Magnesium 1.8 (1.8-2.4) mg/dL Total Bilirubin 0.4 (0.2-1.0) mg/dL AST 22 (15-37) U/L ALT 34 (16-63) U/L Alkaline Phosphatase 55 (46-116) U/L Troponin I < 0.017 (0.00-0.056) ng/mL Total Protein 6.6 (6.4-8.2) g/dl Albumin 3.4 (3.4-5.0) g/dl Globulin 3.2 gm/dL Albumin/Globulin Ratio 1.1 (1-2) Free T4 1.16 (0.76-1.46) ng/dL TSH 3rd Generation 1.631 (0.358-3.74) uIU/mL Urine Color Yellow (Yellow) Urine Appearance Clear (Clear) Urine pH 5.5 (5.0-8.0) Ur Specific [place] > or = 1.030 (1.005-1.030) Urine Protein 1+ H (Negative) Urine Glucose (UA) 2+ H (Negative) Urine Ketones Trace H (Negative) Urine Occult Blood Negative (Negative) Urine Nitrite Negative (Negative) Urine Bilirubin Negative (Negative) Urine Urobilinogen 0.2 (0.2-1.0) Ur Leukocyte Esterase Negative (Negative) Urine RBC 0-5 (0-5) /hpf Urine WBC 0-5 (0-5) /hpf Ur Squamous Epith Cells 0-5 (0-5) /hpf Urine Bacteria Occasional (FEW) /hpf Urine Mucus Not seen (FEW) /hpf - Re-Assessments/Exams Free Text/Narrative Re-Assessment/Exam: Patient is an 86-year-old male presenting to the emergency department with his daughter with complaints of intermittent hot flashes and increased weakness which has been progressively worsening over the last few weeks. Exam is unremarkable. Vital signs are normal. Ordered blood work and chest x-ray. 09/18/21 1700 Hematology is significant for BUN elevated 23, creatinine 1.6, glucose 188. Otherwise unremarkable. Urinalysis negative for infection. Results discussed with patient and his daughter. The appointment to follow-up with Dr. Stanley on Friday. Recommended to keep this. Discussed return precautions. Discharge instructions as documented. Departure - Departure Time of Disposition: 17:09 Disposition: Home, Self-Care 01 Condition: Good Clinical Impression: Fatigue Qualifiers: Fatigue type: unspecified Qualified Code(s): R53.83 - Other fatigue - Discharge Information *PRESCRIPTION DRUG MONITORING PROGRAM REVIEWED*: No *COPY OF PRESCRIPTION DRUG MONITORING REPORT IN PATIENT LUIS: No Instructions: Fatigue Referrals: Jo Stanley MD [Physician] - Forms: ED Department Discharge Additional Instructions: Continue medications as previously prescribed. Keep follow-up appointment as scheduled Dr. Stanley on Friday. Return to ER for any new or worsening symptoms of concern.
== END 2021-09-18 17:20 | disposition home or self-care (01) ==
LOC: JD.ED 13:10
DX: R53.83 Other fatigue (principal); E78.00 Pure hypercholesterolemia, unspecified; I10 Essential (primary) hypertension; E03.9 Hypothyroidism, unspecified; E11.9 Type 2 diabetes mellitus without complications; Z88.8 Allergy status to other drugs, medicaments and biological substances; Z79.82 Long term (current) use of aspirin; Z79.899 Other long term (current) drug therapy; Z86.73 Personal history of transient ischemic attack (TIA), and cerebral infarction without residual deficits; Z87.891 Personal history of nicotine dependence
CPT/HCPCS: 36415; 71046; 71046-26; 80053; 81001; 83735; 84439; 84443; 84484; 85025; 99283; 99285-25

== ENCOUNTER 2021-09-23 18:57 | Inpatient (IN) | payer MEDICARE, BC ==
[2021-09-23 20:05] LABS: CORONAVIRUS COVID-19 NAA NEGATIVE (NEGATIVE)
--- NOTE | 2021-09-23 20:05 | EDM.PDOC ---
ED HPI GENERAL MEDICAL PROBLEM - General Chief Complaint: General Stated Complaint: RECENT FALL/MOBILITY PROBLEMS Time Seen by Provider: 09/23/21 19:17 Source of Information: Reports: Patient, Old Records (ED visit 09/18/2021) History Limitations: Reports: Altered Mental Status (Patient somewhat confused). Denies: Physical Impairment - History of Present Illness INITIAL COMMENTS - FREE TEXT/NARRATIVE: Mr. Moise is a very pleasant 86-year-old gentleman who is now brought to the ED by his daughter, after he fell at home. The patient tells me that he had been on the toilet for a while, having difficulty getting up. Once he did, he made his way to the kitchen using his walker, but once in the kitchen, he set his walker aside and tried to move around his kitchen without assistance, unsuccessfully. He slid down the refrigerator. He states that he is uninjured. He was too weak to get up, and was on the floor for 15 minutes before someone found him. Medical records indicate that the patient was seen in this ED on 09/18/2021 with a complaint at that time of a 3-week history of fatigue and hot flashes, but with no fever. He had denied any other complaints. Work-up included a CBC, CMP, magnesium level, troponin, TSH, free T4, and a urinalysis, which was remarkable for renal insufficiency and a blood glucose of 188, but was otherwise unremarkable. Since that visit, the patient followed up with his PCP this past 09/21/2021. The patient states that his PCP recommended that he be referred to a Neurologist for further evaluation, although the patient's daughter, who states that she was there with the patient, does not recall that recommendation. Here in the ED tonight, the patient's initial BP is found to be mildly elevated at 141/52 with slight tachypnea of 25 rpm. He is afebrile, saturating 93% on room air. He appears to be comfortable, no acute distress. Other than the generalized fatigue and intermittent feeling hot, the patient reports having long-term generalized body aches. He denies having a recent fever, chills, sore throat, ear pain, nasal or sinus congestion, cough, dyspnea, chest pain, palpitations, nausea, vomiting, constipation, diarrhea, abdominal pain, urinary symptoms, recent weight gain or weight loss, recent bloody bowel movements or black bowel movements, headaches, or rashes. The patient's PCP is Dr. Gerardo Jesus, however, he is currently seeing Dr. Jo Stanley. His Orthopedic Surgeon is Dr. Mitch German. His Front Of House Manager is Dr. Randal Elena. He does not recall the name of his Airway Controller at [facility]. He does not recall the name of his Urologist. He has received 2 COVID vaccinations plus a booster, and an influenza vaccination this season. Back Pain Score (Numeric/FACES): 8 - Related Data Allergies Allergy/AdvReac Type Severity Reaction Status Date / Time atorvastatin [From Lipitor] Allergy Severe Other Verified 09/23/21 19:14 rosuvastatin [From Crestor] Allergy Severe Other Verified 09/23/21 19:14 Home Meds: Home Meds Aspirin 81 mg PO DAILY 06/20/16 [History] Docusate Sodium [DOK] 250 mg PO BID PRN 06/20/16 [History] Fish Oil/[place]-3 Fatty Acids [Fish Oil 1,000 MG] 1,000 mg PO DAILY 06/20/16 [History] Ubidecarenone [Co Q-10] 100 mg PO DAILY 09/09/17 [History] Rosuvastatin [Crestor] 10 mg PO QPM 02/15/18 [History] Acetaminophen [Tylenol] 650 mg PO Q4H PRN 09/23/21 [History] Cholecalciferol (Vitamin D3) [Vitamin D3] 2,000 units PO DAILY 09/23/21 [History] Clopidogrel [Plavix] 75 mg PO DAILY 09/23/21 [History] Fluticasone Propionate [Flonase] 1 spray NASBOTH BID PRN 09/23/21 [History] Glimepiride 1 mg PO DAILY 09/23/21 [History] Glucosam/Chond/Hyalu/Cf Borate [Move Free Joint Health Tablet] 1 tab PO DAILY 09/23/21 [History] Pantoprazole 20 mg PO DAILY 09/23/21 [History] Propylene Glycol [Systane Complete] 1 drop EYEBOTH BID PRN 09/23/21 [History] Tamsulosin [Flomax] 0.4 mg PO BEDTIME 09/23/21 [History] guaiFENesin/Dextromethorphan [Tussin Dm Liquid] 5 ml PO Q4H PRN 09/23/21 [History] metFORMIN [Glucophage] 1,000 mg PO QPM 09/23/21 [History] metFORMIN [Glucophage] 500 mg PO ASDIRECTED 09/23/21 [History] Past Medical History HEENT History: Reports: Hard of Hearing (wears hearing aids) Cardiovascular History: Reports: High Cholesterol, Hypertension, Other (See Below) (Carotid artery disease) Genitourinary History: Reports: BPH Musculoskeletal History: Reports: Osteoarthritis Neurological History: Reports: CVA (residual memory issues) Psychiatric History: Reports: Depression Endocrine/Metabolic History: Reports: Diabetes, Type II, Hypothyroidism, Obesity/BMI 30+ - Infectious Disease History Infectious Disease History: Reports: Measles, Novel Coronavirus (dx'd Dec or Jan 2020) - Past Surgical History HEENT Surgical History: Reports: Cataract Surgery (bilateral) Cardiovascular Surgical History: Reports: Carotid Endarterectomy (left) GI Surgical History: Reports: Cholecystectomy (around 2009) Musculoskeletal Surgical History: Reports: Hip Replacement (bilateral), Shoulder Surgery (left, open) Social & Family History - Tobacco Use Tobacco Use Status *Q: Former Tobacco User Years of Tobacco use: 20 Packs/Tins Daily: 1 Month/Year Tobacco Last Used: Quit around 1969 Tobacco Use Comment: Started smoking 1950 Second Hand Smoke Exposure: No - Caffeine Use Caffeine Use: Reports: Coffee - Alcohol Use Alcohol Use History: No - Recreational Drug Use Recreational Drug Use: No - Living Situation & Occupation Living situation: Reports: , Assisted Living ([facility]) 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 - Review of Systems Review Of Systems: Comprehensive ROS is negative, except as noted in HPI. ED EXAM, GENERAL - Physical Exam Exam: See Below Exam Limited By: Altered Mental Status (Had some difficulty underastanding neuro commands) General Appearance: Alert, WD/WN, No Apparent Distress Eye Exam: Bilateral Eye: EOMI, Normal Inspection (s/p cataract surgery) Ears: Normal External Exam, Hearing Loss (bilateral hearing aids) Nose: Normal Inspection, Normal Mucosa, No Blood Throat/Mouth: Normal Inspection, Normal Lips, Normal Teeth, Normal Gums, Normal Oropharynx, Normal Voice, No Airway Compromise Head: Atraumatic, Normocephalic Neck: Normal Inspection, Supple, Non-Tender, Full Range of Motion Respiratory/Chest: No Respiratory Distress, Lungs Clear, Normal Breath Sounds, No Accessory Muscle Use, Chest Non-Tender Cardiovascular: Normal Peripheral Pulses, Regular Rate, Rhythm, No Gallop, No JVD, No Murmur, No Rub Peripheral Pulses: 3+: Radial (L), Radial (R) GI/Abdominal: Normal Bowel Sounds, Soft, No Organomegaly, No Distention, No Abnormal Bruit, No Mass, Tender (Generalized, non-focal) Extremities: Non-Tender, Normal Capillary Refill, Other (2+ pretibial and foot edema on right. No signigicant edema on left.) Neurological: Alert, CN II-XII Intact, Confused, Slow to Respond, Other (Generalized weakness/deconditioning) Psychiatric: Normal Affect Skin Exam: Warm, Dry, Intact, Normal Color, No Rash #1 Interpretation EKG Date: 09/23/21 Time: 20:22 Rhythm: Other (Accelerated junctional rhythm) Rate (Beats/Min): 89 [place]: Normal P-Wave: Absent QRS: Normal ST-T: Normal QT: Prolonged (QTc 521 ms) Comparison: Change From Previous EKG (Was in NSR with 1st degree AVB 10/25/2018) Course - Vital Signs Last Recorded V/S: Last Vital Signs Temp 36.6 C 09/23/21 19:12 Pulse 90 09/23/21 19:12 Resp 25 H 09/23/21 19:12 BP 141/52 H 09/23/21 19:12 Pulse Ox 93 L 09/23/21 19:12 - Orders/Labs/Meds Orders: Active Orders 24 hr Category Date Time Status Ang Chest [CT] Stat Exams 09/23/21 21:35 Taken Chest 1V Frontal [CR] Stat Exams 09/23/21 19:58 Taken Head wo Cont [CT] Stat Exams 09/23/21 19:57 Taken CULTURE URINE [MREF] Stat Lab 09/23/21 20:40 Received Sodium Chloride 0.9% [Normal Saline] 1,000 ml Med 09/23/21 21:45 Active IV ASDIRECTED Sodium Chloride 0.9% [Normal Saline] 100 ml Med 09/23/21 21:45 Active IV ASDIRECTED Medication Orders Sodium Chloride (Normal Saline) 1,000 mls @ 150 mls/hr IV ASDIRECTED SURESH Last Admin: 09/23/21 22:11 Dose: 150 mls/hr Documented by: PILAR Sodium Chloride (Normal Saline) 100 mls @ 70 mls/min IV ASDIRECTED SURESH Last Admin: 09/23/21 22:10 Dose: 70 mls/min Documented by: LILLY Labs: Laboratory Tests 09/23/21 09/23/21 09/23/21 Range/Units 19:20 20:15 20:15 WBC 8.75 (4.23-9.07) K/mm3 RBC 4.22 L (4.63-6.08) M/mm3 Hgb 13.8 (13.7-17.5) gm/dl Hct 42.0 (40.1-51.0) % MCV 99.5 H (79.0-92.2) fl MCH 32.7 H (25.7-32.2) pg MCHC 32.9 (32.2-35.5) g/dl RDW Std Deviation 49.1 H (35.1-43.9) fL Plt Count 161 L (163-337) K/mm3 MPV 11.3 (9.4-12.3) fl Neutrophils % (Manual) 74 H (40-60) % Band Neutrophils % 3 (0-10) % Lymphocytes % (Manual) 13 L (20-40) % Atypical Lymphs % 0 % Monocytes % (Manual) 8 (2-10) % Eosinophils % (Manual) 1 (0.8-7.0) % Basophils % (Manual) 1 (0.2-1.2) Platelet Estimate Adequate Anisocytosis 1+ slight Macrocytosis 1+ slight D-Dimer, Quantitative (0.19-0.50) mg/L Sodium 138 (136-145) mEq/L Potassium 4.3 (3.5-5.1) mEq/L Chloride 104 (98-107) mEq/L Carbon Dioxide 23 (21-32) mEq/L Anion Gap 15.3 H (5-15) BUN 29 H (7-18) mg/dL Creatinine 1.5 H (0.7-1.3) mg/dL Est Cr Clr Drug Dosing 34.70 mL/min Estimated GFR (MDRD) 44 (>60) mL/min BUN/Creatinine Ratio 19.3 H (14-18) Glucose 199 H (70-99) mg/dL Calcium 9.7 (8.5-10.1) mg/dL Magnesium 1.8 (1.8-2.4) mg/dL Total Bilirubin 0.6 (0.2-1.0) mg/dL AST 32 (15-37) U/L ALT 38 (16-63) U/L Alkaline Phosphatase 57 (46-116) U/L Troponin I < 0.017 (0.00-0.056) ng/mL NT-Pro-B Natriuret Pep (0-450) pg/mL Total Protein 6.2 L (6.4-8.2) g/dl Albumin 3.5 (3.4-5.0) g/dl Globulin 2.7 gm/dL Albumin/Globulin Ratio 1.3 (1-2) Urine Color (Yellow) Urine Appearance (Clear) Urine pH (5.0-8.0) Ur Specific [place] (1.005-1.030) Urine Protein (Negative) Urine Glucose (UA) (Negative) Urine Ketones (Negative) Urine Occult Blood (Negative) Urine Nitrite (Negative) Urine Bilirubin (Negative) Urine Urobilinogen (0.2-1.0) Ur Leukocyte Esterase (Negative) Urine RBC (0-5) /hpf Urine WBC (0-5) /hpf Ur Squamous Epith Cells (0-5) /hpf Urine Bacteria (FEW) /hpf Urine Mucus (FEW) /hpf Influenza Type A RNA Negative (NEGATIVE) Influenza Type B RNA Negative (NEGATIVE) SARS-CoV-2 RNA (GEORGINA) Negative (NEGATIVE) 09/23/21 09/23/21 09/23/21 Range/Units 20:15 20:15 20:40 WBC (4.23-9.07) K/mm3 RBC (4.63-6.08) M/mm3 Hgb (13.7-17.5) gm/dl Hct (40.1-51.0) % MCV (79.0-92.2) fl MCH (25.7-32.2) pg MCHC (32.2-35.5) g/dl RDW Std Deviation (35.1-43.9) fL Plt Count (163-337) K/mm3 MPV (9.4-12.3) fl Neutrophils % (Manual) (40-60) % Band Neutrophils % (0-10) % Lymphocytes % (Manual) (20-40) % Atypical Lymphs % % Monocytes % (Manual) (2-10) % Eosinophils % (Manual) (0.8-7.0) % Basophils % (Manual) (0.2-1.2) Platelet Estimate Anisocytosis Macrocytosis D-Dimer, Quantitative 1.26 H (0.19-0.50) mg/L Sodium (136-145) mEq/L Potassium (3.5-5.1) mEq/L Chloride (98-107) mEq/L Carbon Dioxide (21-32) mEq/L Anion Gap (5-15) BUN (7-18) mg/dL Creatinine (0.7-1.3) mg/dL Est Cr Clr Drug Dosing mL/min Estimated GFR (MDRD) (>60) mL/min BUN/Creatinine Ratio (14-18) Glucose (70-99) mg/dL Calcium (8.5-10.1) mg/dL Magnesium (1.8-2.4) mg/dL Total Bilirubin (0.2-1.0) mg/dL AST (15-37) U/L ALT (16-63) U/L Alkaline Phosphatase (46-116) U/L Troponin I (0.00-0.056) ng/mL NT-Pro-B Natriuret Pep 160 (0-450) pg/mL Total Protein (6.4-8.2) g/dl Albumin (3.4-5.0) g/dl Globulin gm/dL Albumin/Globulin Ratio (1-2) Urine Color Yellow (Yellow) Urine Appearance Slt cloudy H (Clear) Urine pH 5.0 (5.0-8.0) Ur Specific [place] 1.025 (1.005-1.030) Urine Protein 1+ H (Negative) Urine Glucose (UA) Negative (Negative) Urine Ketones 1+ H (Negative) Urine Occult Blood Trace-intact H (Negative) Urine Nitrite Negative (Negative) Urine Bilirubin Negative (Negative) Urine Urobilinogen 1.0 (0.2-1.0) Ur Leukocyte Esterase Trace H (Negative) Urine RBC 5-10 H (0-5) /hpf Urine WBC 30-40 H (0-5) /hpf Ur Squamous Epith Cells 5-10 H (0-5) /hpf Urine Bacteria Moderate H (FEW) /hpf Urine Mucus Few (FEW) /hpf Influenza Type A RNA (NEGATIVE) Influenza Type B RNA (NEGATIVE) SARS-CoV-2 RNA (GE[place]GINA) (NEGATIVE) Meds: Medications Generic Name Dose Route Start Last Admin Trade Name Freq PRN Reason Stop Dose Admin Sodium Chloride 1,000 mls @ 150 mls/hr 09/23/21 21:45 09/23/21 22:11 Normal Saline IV 150 mls/hr ASDIRECTED SURESH Administration Sodium Chloride 100 mls @ 70 mls/min 09/23/21 21:45 09/23/21 22:10 Normal Saline IV 70 mls/min ASDIRECTED SURESH Administration Discontinued Medications Generic Name Dose Route Start Last Admin Trade Name Freq PRN Reason Stop Dose Admin Apixaban 10 mg 09/24/21 00:04 09/24/21 00:22 Apixaban 5 Mg Tab PO 09/24/21 00:05 10 mg ONETIME STA Administration Heparin Sodium (Porcine) 5,000 units 09/23/21 22:49 09/23/21 23:03 Heparin Sodium 5,000 Units/Ml Vial IVPUSH 09/23/21 22:50 5,000 units .BOLUS STA Administration Heparin Sodium/Dextrose 25,000 units in 500 mls @ 26 mls/hr 09/23/21 23:00 09/23/21 23:03 Heparin 25,000 Units In D5w 500 Ml IV 1,300 units/hr TITRATE SURESH 26 mls/hr Administration Protocol 1,300 UNITS/HR Iopamidol 100 ml 09/23/21 21:43 09/23/21 22:10 Iopamidol 755 Mg/Ml 100 Ml Bottle IVPUSH 09/23/21 21:44 100 ml ONETIME ONE Administration Nitrofurantoin Macrocrystals 100 mg 09/23/21 21:36 09/23/21 22:11 Nitrofurantoin Monohydrate/Macrocrystalline 100 Mg Cap PO 09/23/21 21:37 100 mg ONETIME STA Administration Sodium Chloride 10 ml 09/23/21 21:43 09/23/21 22:10 Sodium Chloride 0.9% 10 Ml Sdv FLUSH 09/23/21 21:44 10 ml ONETIME ONE Administration - Re-Assessments/Exams Free Text/Narrative Re-Assessment/Exam: 11/28/21 20:01 The patient appears to be suffering from some cognitive impairment and generalized weakness/deconditioning, however, I do not find any focal neurologic deficits on his neurologic examination. A swab for the SARS-CoV-2 virus and influenza A + B viruses was collected at triage. I have ordered a work-up that includes numerous blood tests, a portable chest x-ray, a CT of the head without contrast, and an ECG. 09/23/21 20:45 Notified by Bharti CHAVEZ that she collected a urine sample by clean-catch and sent it for urinalysis, as the patient told her that he had been having some dysuria recently. Of note, the patient had expressly told me that he had not had any urinary symptoms. 09/23/21 21:25 CT of the head without contrast is read by v[facility] as "No acute intracranial abnormality." 09/23/21 21:30 Portable chest radiograph reviewed. The cardiac silhouette is notable for a widened mediastinum, thought due to tortuous great vessels, as noted on prior portable chest x-ray dated 10/25/2018. No pulmonary vascular congestion. No pleural effusions seen on this AP view. No focal infiltrate. No pneumothorax. Left shoulder anchor noted. Formal read per the Radiologist pending. The patient's CBC is remarkable for slight thrombocytopenia of 161,000, with the remainder of his CBC being unremarkable. His CMP is remarkable for a BUN/Cr mildly elevated at 29/1.5, with hyperglycemia of 199, and the remainder of his CMP being unremarkable. His magnesium level is within normal limits at 1.8. His troponin is undetectably low. His pro-BNP is within normal limits at 160. His D-dimer is moderately elevated at 1.26. His urinalysis is remarkable for slightly cloudy appearance, trace occult blood with 5-10 RBCs, trace leukocyte esterase with 30-40 WBCs, nitrate negative with moderate bacteria, and 5-10 squamous epithelial cells. His swab for the SARS-CoV-2 virus and influenza A + B viruses is negative for all. Reviewing prior labs, I see that the patient's BUN/Cr were 23/1.6 on 09/18/2021, but 21/1.2 on 10/25/2018. Based on the above, I have ordered a urine culture and a CT angiogram of the chest to evaluate for PE. The patient will be given IV fluid and started on oral nitrofurantoin. 09/23/21 22:45 CT angiogram of the chest is read by [facility] as: Evidence for right pulmonary embolism. 2. Elevated RV/LV ratio. 3. Patchy areas of parenchymal opacification bilaterally. 09/23/21 22:55 Case discussed with Adam at [facility] at 22:50. Portable chest x-ray and CT angiogram/chest images were pushed to [facility] at 22:52. Henny holguin will call us back once those images have been received. In the meantime, I have ordered a heparin bolus + drip. 09/23/21 23:[address] Parnell, Interventional Radiologist at [facility], at 23:26. He stated that he is unimpressed with the size of the pulmonary embolus, and feels that the patient's right heart strain, if present, is likely due to something else. He would not subject the patient to a thrombectomy. 09/24/21 00:[address] Parnell discussed with the patient and his daughter. I recommended admission to the hospital for placement into a skilled nursing, during which time he can be switched from a heparin drip to an oral anticoagulant, and continued on nitrofurantoin. Both the patient and his daughter agreed. Case then discussed with Dr. Ortez at 23:59. He accepted the patient for placement into observation. He requested that I start the patient on Eliquis. I will discontinue the heparin drip. Departure - Departure Time of Disposition: 00:05 Disposition: Refer to Observation Condition: Good Clinical Impression: Generalized weakness, Physical deconditioning, Fall at home, Pulmonary embolus, Renal insufficiency, Hyperglycemia due to type 2 diabetes mellitus, UTI (urinary tract infection) - Discharge Information *PRESCRIPTION DRUG MONITORING PROGRAM REVIEWED*: Not Applicable *COPY OF PRESCRIPTION DRUG MONITORING REPORT IN PATIENT LUIS: Not Applicable Sepsis Event Note (ED) - Focused Exam Vital Signs: Vital Signs Temp Pulse Resp BP Pulse Ox 09/23/21 19:12 36.6 C 90 25 H 141/52 H 93 L - My Orders Last 24 Hours: My Active Orders 09/23/21 19:57 Head wo Cont [CT] Stat 09/23/21 19:58 Chest 1V Frontal [CR] Stat 09/23/21 20:40 CULTURE URINE [MREF] Stat 09/23/21 21:35 Ang Chest [CT] Stat 09/23/21 21:45 Sodium Chloride 0.9% [Normal Saline] 1,000 ml IV ASDIRECTED Sodium Chloride 0.9% [Normal Saline] 100 ml IV ASDIRECTED - Assessment/Plan Last 24 Hours: My Active Orders 09/23/21 19:57 Head wo Cont [CT] Stat 09/23/21 19:58 Chest 1V Frontal [CR] Stat 09/23/21 20:40 CULTURE URINE [MREF] Stat 09/23/21 21:35 Ang Chest [CT] Stat 09/23/21 21:45 Sodium Chloride 0.9% [Normal Saline] 1,000 ml IV ASDIRECTED Sodium Chloride 0.9% [Normal Saline] 100 ml IV ASDIRECTED
[2021-09-23] MEDS ORDERED: Nitrofurantoin Monohydrate/Macrocrystalline 100 MG Cap PO STA (21:36)
[2021-09-23] MEDS ORDERED: Sodium Chloride 0.9% 10 ML SDV FLUSH ONE (21:43)
[2021-09-23] MEDS ORDERED: Iopamidol 755 Mg/ML 100 ML Bottle IVPUSH ONE (21:43)
[2021-09-23] MEDS ORDERED: Sodium Chloride 0.9% 1,000 ML IV SCH (21:45)
[2021-09-23] MEDS ORDERED: Sodium Chloride 0.9% 100 ML IV SCH (21:45)
[2021-09-23] MEDS ORDERED: Heparin Sodium 5,000 Units/ML Vial IVPUSH STA (22:49)
[2021-09-23] MEDS ORDERED: Heparin Sodium/D5W 25,000 UNITS/500 ML BAG IV SCH (23:00)
[2021-09-24] MEDS ORDERED: Apixaban 5 MG Tab PO STA (00:04)
[2021-09-24] MEDS ORDERED: Carboxymethylcellulose Sodium 1% Ophth Gel 15 ML Bottle EYEBOTH PRN (06:27)
[2021-09-24] MEDS ORDERED: Fluticasone Propionate Nasal Spray 16 GM Bottle NASBOTH PRN (06:27)
[2021-09-24] MEDS ORDERED: metFORMIN 500 MG Tab PO SCH ×2 (06:30→18:00)
--- NOTE | 2021-09-24 06:31 | PCM.HP.2 ---
H&P History of Present Illness - General Date of Service: 09/24/21 Admit Problem/Dx: Admission Diagnosis/Problem Admission Diagnosis/Problem Pulmonary embolism Source of Information: Patient, Old Records History Limitations: Reports: No Limitations - History of Present Illness Initial Comments - Free Text/Narative: The patient is an 86-year-old gentleman who was brought to the emergency department by his daughter after he fell at home. The patient had difficulty in getting up. The patient had reported to the emergency room physician that he was using his walker and got into the kitchen and tried to walk around but was unsuccessful and slid down the refrigerator. The patient says at that time he was not injured. The patient had a 3-week history of fatigue hot flashes and no fever. He had been seen previously in the emergency department. The patient says today that he is feeling better his biggest concern is that he has been unable to urinate properly. He was noted to be confused in the emergency department. Late yesterday evening the patient had a CT scan of his chest which showed an equivocal small PE in the right subsegmental branch of the right lower lung. The patient has not had any shortness of breath. The patient was hypoxic on room air in the ER. Onset of Symptoms: Reports: Sudden Duration of Symptoms: Reports: Day(s):, Intermittent Quality: Reports: Dull Severity: Mild Improves with: Reports: None Worsens with: Reports: None Context: Reports: Other (Frequent falls) Back Pain Score (Numeric/FACES): 8 - Related Data Allergies/Adverse Reactions: Allergies Allergy/AdvReac Type Severity Reaction Status Date / Time atorvastatin [From Lipitor] Allergy Severe Other Verified 09/24/21 08:22 rosuvastatin [From Crestor] Allergy Severe Other Verified 09/24/21 08:22 Home Medications: Home Meds Aspirin 81 mg PO DAILY 06/20/16 [History] Docusate Sodium [DOK] 250 mg PO BID PRN 06/20/16 [History] Fish Oil/Shorter-3 Fatty Acids [Fish Oil 1,000 MG] 1,000 mg PO DAILY 06/20/16 [History] Ubidecarenone [Co Q-10] 100 mg PO DAILY 09/09/17 [History] Rosuvastatin [Crestor] 10 mg PO QPM 02/15/18 [History] Acetaminophen [Tylenol] 650 mg PO Q4H PRN 09/23/21 [History] Cholecalciferol (Vitamin D3) [Vitamin D3] 50 mcg PO DAILY 09/23/21 [History] Clopidogrel [Plavix] 75 mg PO DAILY 09/23/21 [History] Fluticasone Propionate [Flonase] 1 spray NASBOTH BID PRN 09/23/21 [History] Glimepiride 1 mg PO DAILY 09/23/21 [History] Glucosam/Chond/Hyalu/Cf Borate [Move Free Joint Health Tablet] 1 tab PO DAILY 09/23/21 [History] Pantoprazole 20 mg PO DAILY 09/23/21 [History] Propylene Glycol [Systane Complete] 1 drop EYEBOTH BID PRN 09/23/21 [History] Tamsulosin [Flomax] 0.4 mg PO BEDTIME 09/23/21 [History] guaiFENesin/Dextromethorphan [Tussin Dm Liquid] 5 ml PO Q4H PRN 09/23/21 [History] metFORMIN [Glucophage] 1,000 mg PO QPM 09/23/21 [History] metFORMIN [Glucophage] 500 mg PO BID 09/23/21 [History] Past Medical History HEENT History: Reports: Hard of Hearing (wears hearing aids) Other HEENT History: ear aches and cleansing Cardiovascular History: Reports: High Cholesterol, Hypertension, Other (See Below) (Carotid artery disease) Other Cardiovascular History: Hx of Carotid Artery Disease with Lt. CEA Respiratory History: Reports: None Gastrointestinal History: Reports: Other (See Below) Other Gastrointestinal History: Constipation Genitourinary History: Reports: BPH Musculoskeletal History: Reports: Osteoarthritis Neurological History: Reports: CVA (residual memory issues) Psychiatric History: Reports: Depression Other Psychiatric History: memory loss from stroke 7 years ago Endocrine/Metabolic History: Reports: Diabetes, Type II, Hypothyroidism, Obesity/BMI 30+ Hematologic History: Reports: Anticoagulation Therapy Immunologic History: Reports: None Oncologic (Cancer) History: Reports: None - Infectious Disease History Infectious Disease History: Reports: Measles, Novel Coronavirus (dx'd Dec or Jan 2020) - Past Surgical History HEENT Surgical History: Reports: Cataract Surgery (bilateral) Cardiovascular Surgical History: Reports: Carotid Endarterectomy (left) GI Surgical History: Reports: Cholecystectomy (around 2009) Musculoskeletal Surgical History: Reports: Hip Replacement (bilateral), Shoulder Surgery (left, open) Social & Family History - Family History Family Medical History: No Pertinent Family History - Tobacco Use Tobacco Use Status *Q: Former Tobacco User Years of Tobacco use: 20 Packs/Tins Daily: 1 Month/Year Tobacco Last Used: Quit around 1969 Tobacco Use Comment: Started smoking 1950 Second Hand Smoke Exposure: No - Caffeine Use Caffeine Use: Reports: Coffee - Recreational Drug Use Recreational Drug Use: No - Living Situation & Occupation Living situation: Reports: , Assisted Living ([facility]) Occupation: Retired H&P Review of Systems - Review of Systems: Review Of Systems: See Below General: Reports: Weakness, Fatigue HEENT: Reports: No Symptoms Pulmonary: Reports: No Symptoms Cardiovascular: Reports: No Symptoms Gastrointestinal: Reports: No Symptoms Genitourinary: Reports: No Symptoms Musculoskeletal: Reports: Back Pain Skin: Reports: No Symptoms Psychiatric: Reports: No Symptoms Neurological: Reports: No Symptoms Hematologic/Lymphatic: Reports: No Symptoms Immunologic: Reports: No Symptoms Exam - Exam Exam: See Below - Vital Signs Vital Signs: Last Vital Signs Temp 36.9 C 09/24/21 04:26 Pulse 76 09/24/21 04:26 Resp 20 09/24/21 04:26 BP 139/61 09/24/21 04:26 Pulse Ox 94 L 09/24/21 04:26 Weight: 124.602 kg - Exam Quality Assessment: DVT Prophylaxis. No: Supplemental Oxygen General: Alert, Oriented, Cooperative HEENT: Conjunctiva Clear, EACs Clear, EOMI, Mucosa Moist & [place] Neck: Supple, Trachea Midline Lungs: Clear to Auscultation, Normal Respiratory Effort Cardiovascular: Regular Rate, Regular Rhythm GI/Abdominal Exam: Normal Bowel Sounds, Soft, Non-Tender, No Distention (Male) Exam: Deferred Rectal (Males) Exam: Deferred Back Exam: Normal Inspection, Full Range of Motion Extremities: Normal Inspection, Normal Range of Motion, No Pedal Edema Skin: Warm, Dry, Intact Neurological: Cranial Nerves Intact Neuro Extensive - Mental Status: Alert, Oriented x3 Psychiatric: Alert, Normal Affect, Normal Mood - Patient Data Lab Results Last 24 hrs: Laboratory Results - last 24 hr 09/23/21 09/23/21 09/23/21 Range/Units 19:20 20:15 20:15 WBC 8.75 (4.23-9.07) K/mm3 RBC 4.22 L (4.63-6.08) M/mm3 Hgb 13.8 (13.7-17.5) gm/dl Hct 42.0 (40.1-51.0) % MCV 99.5 H (79.0-92.2) fl MCH 32.7 H (25.7-32.2) pg MCHC 32.9 (32.2-35.5) g/dl RDW Std Deviation 49.1 H (35.1-43.9) fL Plt Count 161 L (163-337) K/mm3 MPV 11.3 (9.4-12.3) fl Neutrophils % (Manual) 74 H (40-60) % Band Neutrophils % 3 (0-10) % Lymphocytes % (Manual) 13 L (20-40) % Atypical Lymphs % 0 % Monocytes % (Manual) 8 (2-10) % Eosinophils % (Manual) 1 (0.8-7.0) % Basophils % (Manual) 1 (0.2-1.2) Platelet Estimate Adequate Anisocytosis 1+ slight Macrocytosis 1+ slight D-Dimer, Quantitative (0.19-0.50) mg/L Sodium 138 (136-145) mEq/L Potassium 4.3 (3.5-5.1) mEq/L Chloride 104 (98-107) mEq/L Carbon Dioxide 23 (21-32) mEq/L Anion Gap 15.3 H (5-15) BUN 29 H (7-18) mg/dL Creatinine 1.5 H (0.7-1.3) mg/dL Est Cr Clr Drug Dosing 34.70 mL/min Estimated GFR (MDRD) 44 (>60) mL/min BUN/Creatinine Ratio 19.3 H (14-18) Glucose 199 H (70-99) mg/dL Calcium 9.7 (8.5-10.1) mg/dL Magnesium 1.8 (1.8-2.4) mg/dL Total Bilirubin 0.6 (0.2-1.0) mg/dL AST 32 (15-37) U/L ALT 38 (16-63) U/L Alkaline Phosphatase 57 (46-116) U/L Troponin I < 0.017 (0.00-0.056) ng/mL NT-Pro-B Natriuret Pep (0-450) pg/mL Total Protein 6.2 L (6.4-8.2) g/dl Albumin 3.5 (3.4-5.0) g/dl Globulin 2.7 gm/dL Albumin/Globulin Ratio 1.3 (1-2) Urine Color (Yellow) Urine Appearance (Clear) Urine pH (5.0-8.0) Ur Specific [place] (1.005-1.030) Urine Protein (Negative) Urine Glucose (UA) (Negative) Urine Ketones (Negative) Urine Occult Blood (Negative) Urine Nitrite (Negative) Urine Bilirubin (Negative) Urine Urobilinogen (0.2-1.0) Ur Leukocyte Esterase (Negative) Urine RBC (0-5) /hpf Urine WBC (0-5) /hpf Ur Squamous Epith Cells (0-5) /hpf Urine Bacteria (FEW) /hpf Urine Mucus (FEW) /hpf Influenza Type A RNA Negative (NEGATIVE) Influenza Type B RNA Negative (NEGATIVE) SARS-CoV-2 RNA (GEORGINA) Negative (NEGATIVE) MRSA (PCR) 09/23/21 09/23/21 09/23/21 Range/Units 20:15 20:15 20:40 WBC (4.23-9.07) K/mm3 RBC (4.63-6.08) M/mm3 Hgb (13.7-17.5) gm/dl Hct (40.1-51.0) % MCV (79.0-92.2) fl MCH (25.7-32.2) pg MCHC (32.2-35.5) g/dl RDW Std Deviation (35.1-43.9) fL Plt Count (163-337) K/mm3 MPV (9.4-12.3) fl Neutrophils % (Manual) (40-60) % Band Neutrophils % (0-10) % Lymphocytes % (Manual) (20-40) % Atypical Lymphs % % Monocytes % (Manual) (2-10) % Eosinophils % (Manual) (0.8-7.0) % Basophils % (Manual) (0.2-1.2) Platelet Estimate Anisocytosis Macrocytosis D-Dimer, Quantitative 1.26 H (0.19-0.50) mg/L Sodium (136-145) mEq/L Potassium (3.5-5.1) mEq/L Chloride (98-107) mEq/L Carbon Dioxide (21-32) mEq/L Anion Gap (5-15) BUN (7-18) mg/dL Creatinine (0.7-1.3) mg/dL Est Cr Clr Drug Dosing mL/min Estimated GFR (MDRD) (>60) mL/min BUN/Creatinine Ratio (14-18) Glucose (70-99) mg/dL Calcium (8.5-10.1) mg/dL Magnesium (1.8-2.4) mg/dL Total Bilirubin (0.2-1.0) mg/dL AST (15-37) U/L ALT (16-63) U/L Alkaline Phosphatase (46-116) U/L Troponin I (0.00-0.056) ng/mL NT-Pro-B Natriuret Pep 160 (0-450) pg/mL Total Protein (6.4-8.2) g/dl Albumin (3.4-5.0) g/dl Globulin gm/dL Albumin/Globulin Ratio (1-2) Urine Color Yellow (Yellow) Urine Appearance Slt cloudy H (Clear) Urine pH 5.0 (5.0-8.0) Ur Specific [place] 1.025 (1.005-1.030) Urine Protein 1+ H (Negative) Urine Glucose (UA) Negative (Negative) Urine Ketones 1+ H (Negative) Urine Occult Blood Trace-intact H (Negative) Urine Nitrite Negative (Negative) Urine Bilirubin Negative (Negative) Urine Urobilinogen 1.0 (0.2-1.0) Ur Leukocyte Esterase Trace H (Negative) Urine RBC 5-10 H (0-5) /hpf Urine WBC 30-40 H (0-5) /hpf Ur Squamous Epith Cells 5-10 H (0-5) /hpf Urine Bacteria Moderate H (FEW) /hpf Urine Mucus Few (FEW) /hpf Influenza Type A RNA (NEGATIVE) Influenza Type B RNA (NEGATIVE) SARS-CoV-2 RNA ([place]GINA) (NEGATIVE) MRSA (PCR) 09/24/21 Range/Units 02:00 WBC (4.23-9.07) K/mm3 RBC (4.63-6.08) M/mm3 Hgb (13.7-17.5) gm/dl Hct (40.1-51.0) % MCV (79.0-92.2) fl MCH (25.7-32.2) pg MCHC (32.2-35.5) g/dl RDW Std Deviation (35.1-43.9) fL Plt Count (163-337) K/mm3 MPV (9.4-12.3) fl Neutrophils % (Manual) (40-60) % Band Neutrophils % (0-10) % Lymphocytes % (Manual) (20-40) % Atypical Lymphs % % Monocytes % (Manual) (2-10) % Eosinophils % (Manual) (0.8-7.0) % Basophils % (Manual) (0.2-1.2) Platelet Estimate Anisocytosis Macrocytosis D-Dimer, Quantitative (0.19-0.50) mg/L Sodium (136-145) mEq/L Potassium (3.5-5.1) mEq/L Chloride (98-107) mEq/L Carbon Dioxide (21-32) mEq/L Anion Gap (5-15) BUN (7-18) mg/dL Creatinine (0.7-1.3) mg/dL Est Cr Clr Drug Dosing mL/min Estimated GFR (MDRD) (>60) mL/min BUN/Creatinine Ratio (14-18) Glucose (70-99) mg/dL Calcium (8.5-10.1) mg/dL Magnesium (1.8-2.4) mg/dL Total Bilirubin (0.2-1.0) mg/dL AST (15-37) U/L ALT (16-63) U/L Alkaline Phosphatase (46-116) U/L Troponin I (0.00-0.056) ng/mL NT-Pro-B Natriuret Pep (0-450) pg/mL Total Protein (6.4-8.2) g/dl Albumin (3.4-5.0) g/dl Globulin gm/dL Albumin/Globulin Ratio (1-2) Urine Color (Yellow) Urine Appearance (Clear) Urine pH (5.0-8.0) Ur Specific [place] (1.005-1.030) Urine Protein (Negative) Urine Glucose (UA) (Negative) Urine Ketones (Negative) Urine Occult Blood (Negative) Urine Nitrite (Negative) Urine Bilirubin (Negative) Urine Urobilinogen (0.2-1.0) Ur Leukocyte Esterase (Negative) Urine RBC (0-5) /hpf Urine WBC (0-5) /hpf Ur Squamous Epith Cells (0-5) /hpf Urine Bacteria (FEW) /hpf Urine Mucus (FEW) /hpf Influenza Type A RNA (NEGATIVE) Influenza Type B RNA (NEGATIVE) SARS-CoV-2 RNA ([place]GINA) (NEGATIVE) MRSA (PCR) Negative Result Diagrams: 09/23/21 20:15 09/23/21 20:15 Sepsis Event Note - Focused Exam Vital Signs: Vital Signs Temp Temp Pulse Pulse Resp BP BP 09/24/21 04:26 36.9 C 76 20 139/61 09/24/21 01:14 36.7 C 71 22 H 152/79 H 09/23/21 19:12 36.6 C 90 25 H 141/52 H Pulse Ox 09/24/21 04:26 94 L 09/24/21 01:14 97 09/23/21 19:12 93 L - Problem List (1) Pulmonary embolus SNOMED Code(s): 53685283 ICD Code: I26.99 - OTHER PULMONARY EMBOLISM WITHOUT ACUTE COR PULMONALE Status: Acute Priority: High Current Visit: Yes Qualifiers: Pulmonary embolism type: single subsegmental (without acute cor pulmonale) Qualified Code(s): I26.93 - Single subsegmental pulmonary embolism without acute cor pulmonale (2) Generalized weakness SNOMED Code(s): 14051222 ICD Code: R53.1 - WEAKNESS Status: Chronic Priority: High Current Visit: Yes (3) Hyperglycemia due to type 2 diabetes mellitus SNOMED Code(s): 964357031257438, 446953918884624 ICD Code: E11.65 - TYPE 2 DIABETES MELLITUS WITH HYPERGLYCEMIA Status: Chronic Priority: High Current Visit: Yes Qualifiers: Diabetes mellitus mcfp insulin use: without terminal make up operator use Qualified Code(s): E11.65 - Type 2 diabetes mellitus with hyperglycemia (4) Physical deconditioning SNOMED Code(s): 05776419244264 ICD Code: R53.81 - OTHER MALAISE Status: Chronic Priority: High Current Visit: Yes Problem List Initiated/Reviewed/Updated: Yes Orders Last 24hrs: Active Orders 24 hr Category Date Time Status Patient Status [ADT] Routine ADT 09/24/21 01:00 Active Bedrest Bedside Commode [RC] BID Care 09/24/21 01:21 Active [employer] [employer] Diet [DIET] Diet 09/24/21 Breakfast Ordered Ang Chest [CT] Stat Exams 09/23/21 21:35 Taken Chest 1V Frontal [CR] Stat Exams 09/23/21 19:58 Taken Head wo Cont [CT] Stat Exams 09/23/21 19:57 Taken CULTURE URINE [MREF] Stat Lab 09/23/21 20:40 Received Apixaban [Eliquis] Med 09/24/21 09:00 Active 10 mg PO BID Aspirin Med 09/24/21 09:00 Ordered 81 mg PO DAILY Clopidogrel [Plavix] Med 09/24/21 09:00 Ordered 75 mg PO DAILY Fluticasone Propionate [Flonase] Med 09/24/21 06:27 Ordered 1 spray NASBOTH BID PRN Glimepiride Med 09/24/21 09:00 Ordered 1 mg PO DAILY Nitrofurantoin Robertson/Macrocryst [Macrobid] Med 09/24/21 09:00 Active 100 mg PO BID Pantoprazole Med 09/24/21 09:00 Ordered 20 mg PO DAILY Propylene Glycol [Systane Complete] Med 09/24/21 06:27 Ordered 1 drop EYEBOTH BID PRN Rosuvastatin Med 09/24/21 18:00 Ordered 10 mg PO QPM Sodium Chloride 0.9% [Normal Saline] 1,000 ml Med 09/24/21 01:30 Active IV ASDIRECTED Tamsulosin [Flomax] Med 09/24/21 21:00 Ordered 0.4 mg PO BEDTIME Ubidecarenone Med 09/24/21 09:00 Ordered 100 mg PO DAILY metFORMIN [Glucophage] Med 09/24/21 18:00 Ordered 1,000 mg PO QPM metFORMIN [Glucophage] Med 09/24/21 06:30 Ordered 500 mg PO ASDIRECTED Code Status [Resuscitation Status] Routine Resus Stat 09/24/21 01:20 Ordered Medication Orders Apixaban (Apixaban 5 Mg Tab) 10 mg PO BID SURESH Aspirin (Aspirin 81 Mg Tab.Chew) 81 mg PO DAILY SURESH Clopidogrel Bisulfate (Clopidogrel 75 Mg Tab) 75 mg PO DAILY SURESH Fluticasone Propionate (Fluticasone Propionate Nasal [place] 16 Gm Bottle) gm NASBOTH BID PRN PRN Reason: Allergies Sodium Chloride (Normal Saline) 1,000 mls @ 100 mls/hr IV ASDIRECTED SURESH Metformin HCl (Metformin 500 Mg Tab) 500 mg PO ASDIRECTED SURESH Metformin HCl (Metformin 500 Mg Tab) 1,000 mg PO QPM SURESH Nitrofurantoin Macrocrystals (Nitrofurantoin Monohydrate/Macrocrystalline 100 Mg Cap) 100 mg PO BID SURESH Non-Formulary Medication (Glimepiride) 1 mg PO DAILY SURESH Non-Formulary Medication (Pantoprazole) 20 mg PO DAILY SURESH Non-Formulary Medication (Propylene Glycol [Systane Complete]) 1 drop EYEBOTH BID PRN PRN Reason: Dry Eyes Non-Formulary Medication (Rosuvastatin) 10 mg PO QPM SURESH Non-Formulary Medication (Ubidecarenone) 100 mg PO DAILY SURESH Tamsulosin HCl (Tamsulosin 0.4 Mg Cap.Er) 0.4 mg PO BEDTIME SURESH Assessment/Plan Comment:: The patient is an 86-year-old gentleman who had been admitted to acute hospitalization secondary to hypoxia associated with pulmonary emboli. Patient was started on Eliquis. The patient CT scan showed equivocal sign of subsegmental pulmonary emboli however, prudent choice would be to treated as pulmonary emboli. The patient was also noted to have an elevated D-dimer. I have ordered repeat laboratory studies for the morning. The patient will also be kept on oxygen to help keep his saturations around 92%. The patient has chronic kidney disease and his EGFR is 44mL/min and as result his medications will be renally dosed. He will also be kept on diabetic diet as tolerated. Patient is at the CT with contrast the patient's Metformin is held. The patient is also taking Plavix and his aspirin has been held as well. PT OT has been ordered for the patient. It was also reported that the patient had been driving without difficulty at home. The patient's initial resuscitation code was full code however, I did have a direct discussion with the patient and he prefers to be in a DO NOT INTUBATE DO NOT RESUSCITATE category. This was changed to reflect the patient's wishes. We will continue treatment. The patient should be appropriate for discharge in 1 to 2 days with possible placement in skilled facility. - Mortality Measure Prognosis:: Poor
--- NOTE | 2021-09-24 07:06 | CR ---
Chest: Portable view of the chest was obtained. Comparison: Prior chest x-ray of 09/18/21. Heart size and mediastinum are within normal limits for portable technique. Lungs are clear with no acute parenchymal change. Mild degenerative change is seen within both shoulders. Prior left shoulder surgery is seen. Impression: 1. Findings as described above. 2. Nothing acute is appreciated on portable chest x-ray. Diagnostic code #2
--- NOTE | 2021-09-24 07:06 | CT ---
Head CT Technique: Multiple axial sections through the brain were obtained. Intravenous contrast was not utilized. Reconstructed coronal and sagittal images were obtained. Comparison: Prior head CT study of 02/15/18. Findings: Ventricles are increased in size out of proportion to the sulci over the convexities which is stable from prior CT. Density is noted within the left parietal region which is stable from prior CT exam compatible with old infarct. No other abnormal parenchymal densities are seen. No evidence of intracranial hemorrhage is seen. No midline shift or mass-effect is seen. Bone window settings were reviewed. No acute calvarial abnormality is seen. Slight soft tissue density is seen inferiorly within the right mastoid sinus. Visualized paranasal sinuses show nothing acute. No acute calvarial abnormality is appreciated. Mild calcification is seen within the carotid siphon. Impression: 1. Senescent change as described above. 2. Slight soft tissue density within the right inferior mastoid sinus which I believe is chronic. 3. Nothing acute is appreciated on noncontrast head CT study. Diagnostic code #2 I agree with preliminary report from [facility], finalized on 09/23/21, 10:20 PM BUN PANNER, code 1
--- NOTE | 2021-09-24 07:11 | CT ---
CT chest Technique: Multiple axial sections through the chest were obtained. Intravenous contrast was utilized. Study has been performed as a pulmonary angiogram protocol. Comparison: Prior chest x-ray performed earlier on the same day (9:02 PM) as well as prior CT chest dated 09/18/14. Findings: Artifact is seen secondary to the patient's body habitus. Pulmonary arteries are moderately well opacified. Small filling defect is seen within the subsegmental branch of the right lower lung. Uncertain if this is due to pulmonary embolism or artifact. No other findings of pulmonary embolism are seen. Thoracic aorta shows atherosclerotic calcification with no aneurysm. Mediastinum shows no adenopathy. No pericardial thickening is seen. Heart size is normal. I do not see any heart dysfunction on this exam. Extrapleural fat is noted on both sides more prominent on the right side which is stable from prior chest CT. Mild interstitial changes are seen within both lung bases which appear to be fairly stable from prior CT exam. I do not see any definite acute parenchymal change. Visualized upper abdominal structures show nothing acute. Scattered degenerative changes are noted within the spine. I see no acute bony abnormality. Impression: 1. Equivocal small pulmonary embolism within the right subsegmental branch of the right lower lung. This could also represent artifact. 2. Other findings within the chest are felt to be fairly stable from prior CT chest of 09/18/14. Diagnostic code #3 I somewhat disagree with preliminary report from [facility], finalized on 09/23/21, 11:39 PM [employer]AIL [employer] TECHNICIAN, code 2
[2021-09-24] MEDS ORDERED: Non-Formulary Medication 1 Each (Ubidecarenone 100 MG Capsule) PO SCH (09:00)
[2021-09-24] MEDS ORDERED: Aspirin 81 MG Tab.Chew PO SCH (09:00)
[2021-09-24] MEDS: Apixaban 5 MG Tab PO SCH ×2 (09:30→21:51)
[2021-09-24] MEDS: Nitrofurantoin Monohydrate/Macrocrystalline 100 MG Cap PO SCH ×2 (09:30→21:51)
[2021-09-24] MEDS: Clopidogrel 75 MG Tab PO SCH (10:59)
[2021-09-24] MEDS: Pantoprazole 40 MG Tab.CR PO SCH (10:59)
[2021-09-24] MEDS: Glimepiride 2 MG Tab PO SCH (10:59)
[2021-09-24] MEDS: Nystatin Topical Powder 15 GM Bottle TOP SCH ×2 (11:00→21:51)
[2021-09-24] MEDS: Acetaminophen 325 MG Tab PO PRN ×2 (13:00→17:13)
[2021-09-24] MEDS: Sodium Chloride 0.9% 1,000 ML IV SCH (17:14)
[2021-09-24] MEDS: Tamsulosin 0.4 MG Cap.ER PO SCH (21:51)
[2021-09-25] MEDS: Sodium Chloride 0.9% 1,000 ML IV SCH (01:38)
[2021-09-25] MEDS: Pantoprazole 40 MG Tab.CR PO SCH (09:38)
[2021-09-25] MEDS: Apixaban 5 MG Tab PO SCH ×2 (09:38→20:33)
[2021-09-25] MEDS: Glimepiride 2 MG Tab PO SCH (09:39)
--- NOTE | 2021-09-25 09:39 | PCM.PN ---
- General Info Date of Service: 09/25/21 Admission Dx/Problem (Free Text): Admission Diagnosis/Problem Admission Diagnosis/Problem Subjective Update: The patient is 86-year-old gentleman who had presented to the emergency department by his daughter after a fall at home. The patient had difficulty in getting up. Other than fatigue and weakness the patient was reported to have a small equivocal subsegmental pulmonary emboli. He was hypoxic in the emergency department. The patient today says that he is feeling better. His breathing is better. He still feels weak. The patient also has been tolerating his diet. Functional Status: Reports: Pain Controlled, Tolerating Diet - Review of Systems General: Reports: Weakness, Fatigue HEENT: Reports: No Symptoms Pulmonary: Reports: No Symptoms Cardiovascular: Reports: No Symptoms Gastrointestinal: Reports: No Symptoms Genitourinary: Reports: No Symptoms Musculoskeletal: Reports: No Symptoms Skin: Reports: No Symptoms Neurological: Reports: No Symptoms Psychiatric: Reports: No Symptoms - Patient Data Vitals - Most Recent: Last Vital Signs Temp 36.9 C 09/25/21 07:29 Pulse 91 09/25/21 07:29 Resp 18 09/25/21 07:29 BP 153/76 H 09/25/21 07:29 Pulse Ox 94 L 09/25/21 07:29 Weight - Most Recent: 125.146 kg I&O - Last 24 Hours: Intake & Output 09/24/21 09/25/21 09/25/21 22:59 06:59 14:59 Intake Total 1268 1588 Output Total 25 100 Balance 1243 1488 Lab Results Last 24 Hours: Laboratory Results - last 24 hr 09/25/21 09/25/21 09/25/21 Range/Units 06:05 06:05 06:05 WBC 8.18 (4.23-9.07) K/mm3 RBC 3.90 L (4.63-6.08) M/mm3 Hgb 12.8 L (13.7-17.5) gm/dl Hct 39.3 L (40.1-51.0) % MCV 100.8 H (79.0-92.2) fl MCH 32.8 H (25.7-32.2) pg MCHC 32.6 (32.2-35.5) g/dl RDW Std Deviation 51.1 H (35.1-43.9) fL Plt Count 132 L (163-337) K/mm3 MPV 11.5 (9.4-12.3) fl Neut % (Auto) 69.9 H (34.0-67.9) % Lymph % (Auto) 12.1 L (21.8-53.1) % [place] % (Auto) 17.4 H (5.3-12.2) % Eos % (Auto) 0.1 L (0.8-7.0) Baso % (Auto) 0.1 (0.1-1.2) % Neut # (Auto) 5.72 H (1.78-5.38) K/mm3 Lymph # (Auto) 0.99 L (1.32-3.57) K/mm3 [place] # (Auto) 1.42 H (0.30-0.82) K/mm3 Eos # (Auto) 0.01 L (0.04-0.54) K/mm3 Baso # (Auto) 0.01 (0.01-0.08) K/mm3 D-Dimer, Quantitative 0.75 H (0.19-0.50) mg/L Sodium 141 (136-145) mEq/L Potassium 4.5 (3.5-5.1) mEq/L Chloride 108 H (98-107) mEq/L Carbon Dioxide 24 (21-32) mEq/L Anion Gap 13.5 (5-15) BUN 20 H (7-18) mg/dL Creatinine 1.4 H (0.7-1.3) mg/dL Est Cr Clr Drug Dosing 37.17 mL/min Estimated GFR (MDRD) 48 (>60) mL/min BUN/Creatinine Ratio 14.3 (14-18) Glucose 184 H (70-99) mg/dL Calcium 8.4 L (8.5-10.1) mg/dL Magnesium 1.7 L (1.8-2.4) mg/dL Total Bilirubin 1.0 (0.2-1.0) mg/dL AST 32 (15-37) U/L ALT 34 (16-63) U/L Alkaline Phosphatase 60 (46-116) U/L Total Protein 5.5 L (6.4-8.2) g/dl Albumin 2.9 L (3.4-5.0) g/dl Globulin 2.6 gm/dL Albumin/Globulin Ratio 1.1 (1-2) Med Orders - Current: Current Medications Acetaminophen (Acetaminophen 325 Mg Tab) 650 mg PO Q4H PRN PRN Reason: Pain Last Admin: 09/24/21 17:13 Dose: 650 mg Documented by: Apixaban (Apixaban 5 Mg Tab) 10 mg PO BID [facility] Stop: 09/30/21 09:01 Last Admin: 09/24/21 21:51 Dose: 10 mg Documented by: Apixaban (Apixaban 5 Mg Tab) 5 mg PO BID [facility] Artificial Tears (Carboxymethylcellulose Sodium 1% Ophth Gel 15 Ml Bottle) 0 ml EYEBOTH BID PRN PRN Reason: Dry Eyes Clopidogrel Bisulfate (Clopidogrel 75 Mg Tab) 75 mg PO DAILY [facility] Last Admin: 09/24/21 10:59 Dose: 75 mg Documented by: Fluticasone Propionate (Fluticasone Propionate Nasal [place] 16 Gm Bottle) 0 gm NASBOTH BID PRN PRN Reason: Allergies Glimepiride (Glimepiride 2 Mg Tab) 1 mg PO DAILY [facility] Last Admin: 09/24/21 10:59 Dose: 1 mg Documented by: Sodium Chloride (Normal Saline) 1,000 mls @ 100 mls/hr IV ASDIRECTED [facility] Last Admin: 09/25/21 01:38 Dose: 100 mls/hr Documented by: Metformin HCl (Metformin 500 Mg Tab) 500 mg PO 0700,1200 [facility] Nitrofurantoin Macrocrystals (Nitrofurantoin Monohydrate/Macrocrystalline 100 Mg Cap) 100 mg PO BID [facility] Last Admin: 09/24/21 21:51 Dose: 100 mg Documented by: Nystatin (Nystatin Topical Powder 15 Gm Bottle) 1 gm TOP BID [facility] Last Admin: 09/24/21 21:51 Dose: 1 applic Documented by: Pantoprazole Sodium (Pantoprazole 40 Mg Tab.Cr) 40 mg PO DAILY [facility] Last Admin: 09/24/21 10:59 Dose: 40 mg Documented by: Rosuvastatin Calcium (Rosuvastatin 10 Mg Tab) 10 mg PO QPM [facility] Tamsulosin HCl (Tamsulosin 0.4 Mg Cap.Er) 0.4 mg PO BEDTIME [facility] Last Admin: 09/24/21 21:51 Dose: 0.4 mg Documented by: Discontinued Medications Apixaban (Apixaban 5 Mg Tab) 10 mg PO ONETIME STA Stop: 09/24/21 00:05 Last Admin: 09/24/21 00:22 Dose: 10 mg Documented by: Aspirin (Aspirin 81 Mg Tab.Chew) 81 mg PO DAILY [facility] Heparin Sodium (Porcine) (Heparin Sodium 5,000 Units/Ml Vial) 5,000 units IVPUSH .BOLUS STA Stop: 09/23/21 22:50 Last Admin: 09/23/21 23:03 Dose: 5,000 units Documented by: Sodium Chloride (Normal Saline) 1,000 mls @ 150 mls/hr IV ASDIRECTED [facility] Last Admin: 09/23/21 22:11 Dose: 150 mls/hr Documented by: Sodium Chloride (Normal Saline) 100 mls @ 70 mls/min IV ASDIRECTED [facility] Last Admin: 09/23/21 22:10 Dose: 70 mls/min Documented by: Heparin Sodium/Dextrose (Heparin 25,000 Units In D5w 500 Ml) 25,000 units in 500 mls @ 26 mls/hr IV TITRATE [facility]; Protocol Last Admin: 09/23/21 23:03 Dose: 1,300 units/hr, 26 mls/hr Documented by: Iopamidol (Iopamidol 755 Mg/Ml 100 Ml Bottle) 100 ml IVPUSH ONETIME ONE Stop: 09/23/21 21:44 Last Admin: 09/23/21 22:10 Dose: 100 ml Documented by: Metformin HCl (Metformin 500 Mg Tab) 500 mg PO ASDIRECTED [facility] Metformin HCl (Metformin 500 Mg Tab) 1,000 mg PO QPM [facility] Nitrofurantoin Macrocrystals (Nitrofurantoin Monohydrate/Macrocrystalline 100 Mg Cap) 100 mg PO ONETIME STA Stop: 09/23/21 21:37 Last Admin: 09/23/21 22:11 Dose: 100 mg Documented by: Non-Formulary Medication (Ubidecarenone) 100 mg PO DAILY [facility] Last Admin: 09/24/21 11:50 Dose: Not Given Documented by: Sodium Chloride (Sodium Chloride 0.9% 10 Ml Sdv) 10 ml FLUSH ONETIME ONE Stop: 09/23/21 21:44 Last Admin: 09/23/21 22:10 Dose: 10 ml Documented by: - Exam Quality Assessment: DVT Prophylaxis. No: Supplemental Oxygen General: Alert, Oriented, Cooperative, No Acute Distress HEENT: Pupils Equal, Pupils Reactive, EOMI. No: Mucous Membr. Moist/Ackerman (Dry) Neck: Supple, Trachea Midline Lungs: Clear to Auscultation, Normal Respiratory Effort Cardiovascular: Regular Rate, Regular Rhythm GI/Abdominal Exam: Normal Bowel Sounds, Soft, No Distention (Male) Exam: Deferred Back Exam: Normal Inspection, Full Range of Motion Extremities: Normal Inspection, No Pedal Edema Skin: Warm, Dry, Intact Neurological: No New Focal Deficit Psy/Mental Status: Alert, Normal Affect, Normal Mood - Patient Data Lab Results Last 24 hrs: Laboratory Results - last 24 hr 09/25/21 09/25/21 09/25/21 Range/Units 06:05 06:05 06:05 WBC 8.18 (4.23-9.07) K/mm3 RBC 3.90 L (4.63-6.08) M/mm3 Hgb 12.8 L (13.7-17.5) gm/dl Hct 39.3 L (40.1-51.0) % MCV 100.8 H (79.0-92.2) fl MCH 32.8 H (25.7-32.2) pg MCHC 32.6 (32.2-35.5) g/dl RDW Std Deviation 51.1 H (35.1-43.9) fL Plt Count 132 L (163-337) K/mm3 MPV 11.5 (9.4-12.3) fl Neut % (Auto) 69.9 H (34.0-67.9) % Lymph % (Auto) 12.1 L (21.8-53.1) % [place] % (Auto) 17.4 H (5.3-12.2) % Eos % (Auto) 0.1 L (0.8-7.0) Baso % (Auto) 0.1 (0.1-1.2) % Neut # (Auto) 5.72 H (1.78-5.38) K/mm3 Lymph # (Auto) 0.99 L (1.32-3.57) K/mm3 [place] # (Auto) 1.42 H (0.30-0.82) K/mm3 Eos # (Auto) 0.01 L (0.04-0.54) K/mm3 Baso # (Auto) 0.01 (0.01-0.08) K/mm3 D-Dimer, Quantitative 0.75 H (0.19-0.50) mg/L Sodium 141 (136-145) mEq/L Potassium 4.5 (3.5-5.1) mEq/L Chloride 108 H (98-107) mEq/L Carbon Dioxide 24 (21-32) mEq/L Anion Gap 13.5 (5-15) BUN 20 H (7-18) mg/dL Creatinine 1.4 H (0.7-1.3) mg/dL Est Cr Clr Drug Dosing 37.17 mL/min Estimated GFR (MDRD) 48 (>60) mL/min BUN/Creatinine Ratio 14.3 (14-18) Glucose 184 H (70-99) mg/dL Calcium 8.4 L (8.5-10.1) mg/dL Magnesium 1.7 L (1.8-2.4) mg/dL Total Bilirubin 1.0 (0.2-1.0) mg/dL AST 32 (15-37) U/L ALT 34 (16-63) U/L Alkaline Phosphatase 60 (46-116) U/L Total Protein 5.5 L (6.4-8.2) g/dl Albumin 2.9 L (3.4-5.0) g/dl Globulin 2.6 gm/dL Albumin/Globulin Ratio 1.1 (1-2) Result Diagrams: 09/25/21 06:05 09/25/21 06:05 Sepsis Event Note - Evaluation Sepsis Screening Result: No Definite Risk - Focused Exam Vital Signs: Vital Signs Temp Pulse Resp BP Pulse Ox 09/25/21 07:29 36.9 C 91 18 153/76 H 94 L 09/25/21 01:37 36.8 C 116 H 20 148/86 H 90 L 09/24/21 21:55 36.8 C 84 20 120/66 94 L - Problem List & Annotations (1) Pulmonary embolus SNOMED Code(s): 43561378 Code(s): I26.99 - OTHER PULMONARY EMBOLISM WITHOUT ACUTE COR PULMONALE Status: Acute Priority: High Current Visit: Yes Qualifiers: Pulmonary embolism type: single subsegmental (without acute cor pulmonale) Qualified Code(s): I26.93 - Single subsegmental pulmonary embolism without acute cor pulmonale (2) Generalized weakness SNOMED Code(s): 72854047 Code(s): R53.1 - WEAKNESS Status: Chronic Priority: High Current Visit: Yes (3) Hyperglycemia due to type 2 diabetes mellitus SNOMED Code(s): 318362622620576, 298038220662898 Code(s): E11.65 - TYPE 2 DIABETES MELLITUS WITH HYPERGLYCEMIA Status: Chronic Priority: High Current Visit: Yes Qualifiers: Diabetes mellitus long term care pharmacist insulin use: without long term care pharmacist use Qualified Code(s): E11.65 - Type 2 diabetes mellitus with hyperglycemia (4) Physical deconditioning SNOMED Code(s): 53998771887500 Code(s): R53.81 - OTHER MALAISE Status: Chronic Priority: High Current Visit: Yes - Problem List Review Problem List Initiated/Reviewed/Updated: Yes - My Orders Last 24 Hours: My Active Orders 09/24/21 08:53 PT Evaluation and Treatment [CONS] Routine 09/24/21 08:54 OT Evaluation and Treatment [CONS] Routine 09/24/21 09:00 Clopidogrel [Plavix] 75 mg PO DAILY Glimepiride [Amaryl] 1 mg PO DAILY Pantoprazole [ProTONIX] 40 mg PO DAILY 09/24/21 09:51 Patient Status [ADT] Routine 09/24/21 10:19 Bladder Scan [RC] ASDIRECTED 09/24/21 10:45 Nystatin [Nystop] 1 gm TOP BID 09/24/21 11:32 Bladder Scan [RC] PRN Communication Order [RC] ASDIRECTED Notify Provider Intake and Out [RC] ASDIRECTED Urinary Catheter Assessment [RC] ASDIRECTED 09/24/21 11:45 Insert Urinary Catheter [OM.PC] PRN 09/24/21 12:45 Acetaminophen [TylenoL] 650 mg PO Q4H PRN 09/24/21 Dinner [employer] Diet [DIET] 09/24/21 19:28 CPAP Adult [RT BiPAP/CPAP] [RC] ASDIRECTED 09/24/21 21:00 Tamsulosin [Flomax] 0.4 mg PO BEDTIME 09/25/21 11:45 Insert Urinary Catheter [OM.PC] PRN 09/25/21 18:00 Rosuvastatin [Crestor] 10 mg PO QPM 09/26/21 12:00 metFORMIN [Glucophage] 500 mg PO 0700,1200 - Plan Plan:: The patient is an 86-year-old gentleman who had been admitted to acute hospitalization secondary to hypoxia associated with pulmonary emboli. Patient was started on Eliquis. The patient CT scan showed equivocal sign of subsegmental pulmonary emboli however, prudent choice would be to treated as pulmonary emboli. The patient was also noted to have an elevated D-dimer. I have ordered repeat laboratory studies for the morning. The patient will also be kept on oxygen to help keep his saturations around 92%. The patient has chronic kidney disease and his EGFR is 44mL/min and as result his medications will be renally dosed. He will also be kept on diabetic diet as tolerated. Patient is at the CT with contrast the patient's Metformin is held. The patient is also taking Plavix and his aspirin has been held as well. PT OT has been ordered for the patient. It was also reported that the patient had been driving without difficulty at home. The patient's initial resuscitation code was full code however, I did have a direct discussion with the patient and he prefers to be in a DO NOT INTUBATE DO NOT RESUSCITATE category. This was changed to reflect the patient's wishes. We will continue treatment. The patient should be appropriate for discharge in 1 to 2 days with possible placement in skilled facility. 09/25/2021 The patient is an 86-year-old gentleman who had been admitted to acute hospital [facility] due to possible pulmonary emboli. The patient has been started on Eliquis. He has been tolerating this well. This will continue. The patient is currently awaiting placement. Patient will be on oxygen to keep his saturations at 90 to 92%. Diabetic diet as tolerated. The patient's Metformin should be restarted tomorrow as he had 2 CTs with contrast this being done to help reduce the chance of contrast-induced nephropathy.. The patient is taking Plavix as an antiplatelet therapy and this will be continued. The patient is to continue on his appropriate diabetic diet. Repeat laboratory studies have been ordered. PT OT has recommended SNF placement with further PT OT prior to re turning home. He should be appropriate for discharge to SNF tomorrow. The patient will likely need to be on long-term Eliquis.
[2021-09-25] MEDS: Acetaminophen 325 MG Tab PO PRN (09:40)
[2021-09-25] MEDS: Nitrofurantoin Monohydrate/Macrocrystalline 100 MG Cap PO SCH ×2 (09:42→20:33)
[2021-09-25] MEDS: Clopidogrel 75 MG Tab PO SCH (09:42)
[2021-09-25] MEDS: Nystatin Topical Powder 15 GM Bottle TOP SCH ×2 (09:49→20:33)
[2021-09-25] MEDS: Acetaminophen 325 MG Tab PO SCH ×3 (12:24→20:32)
[2021-09-25] MEDS ORDERED: Ibuprofen 400 MG Tab PO ONE (16:30)
[2021-09-25] MEDS: Rosuvastatin 10 MG Tab PO SCH (17:15)
--- NOTE | 2021-09-25 17:42 | PCM.SN.2 ---
- Free Text/Narrative Note: The patient is an 86-year-old gentleman who had been admitted to acute hospitalization secondary to falls and possible pulmonary emboli. I was called to the patient bedside as he had been "feeling like he was burning up" and shaking. The patient had a blood sugar at bedside that was 180 mg/dL. He has also had difficulty in urination which is related to possible prostate problems with urinary retention and overflow incontinence. Review of the culture obtained prior to the urinalysis was growing out Enterobacter Aerogenes and the patient was placed on ceftriaxone 2 g IV daily to be deescalated as sensitivity indicates.
[2021-09-25] MEDS ORDERED: cefTRIAXone 2 GM in Sodium Chloride 0.9% 100 ML IV SCH (18:00)
[2021-09-25] MEDS: Tamsulosin 0.4 MG Cap.ER PO SCH (20:33)
[2021-09-26] MEDS: Acetaminophen 325 MG Tab PO SCH ×6 (01:26→20:04)
[2021-09-26] MEDS: Glimepiride 2 MG Tab PO SCH (08:35)
[2021-09-26] MEDS: Nitrofurantoin Monohydrate/Macrocrystalline 100 MG Cap PO SCH (08:35)
[2021-09-26] MEDS: Apixaban 5 MG Tab PO SCH ×2 (08:38→20:04)
[2021-09-26] MEDS: Nystatin Topical Powder 15 GM Bottle TOP SCH ×2 (08:39→20:05)
[2021-09-26] MEDS: Clopidogrel 75 MG Tab PO SCH (08:39)
[2021-09-26] MEDS: Pantoprazole 40 MG Tab.CR PO SCH (08:39)
[2021-09-26] MEDS: metFORMIN 500 MG Tab PO SCH (12:06)
[2021-09-26] MEDS: Sulfamethoxazole/Trimethoprim 800-160 MG Tab PO SCH ×2 (12:07→20:04)
--- NOTE | 2021-09-26 13:40 | PCM.PN ---
- General Info Date of Service: 09/26/21 Admission Dx/Problem (Free Text): Admission Diagnosis/Problem Admission Diagnosis/Problem Subjective Update: 86-year-old male with no current complaints. Patient states he is feeling well. He is on 2 L nasal cannula. Enterobacter grew out of his urine sensitive to Rocephin and Bactrim. Functional Status: Reports: Pain Controlled - Review of Systems General: Reports: No Symptoms HEENT: Reports: No Symptoms Pulmonary: Reports: No Symptoms Cardiovascular: Reports: No Symptoms Musculoskeletal: Reports: No Symptoms - Patient Data Vitals - Most Recent: Last Vital Signs Temp 97.3 F 09/26/21 12:05 Pulse 88 09/26/21 12:10 Resp 14 09/26/21 12:05 BP 141/84 H 09/26/21 12:05 Pulse Ox 97 09/26/21 12:10 Weight - Most Recent: 276 lb 9.6 oz I&O - Last 24 Hours: Intake & Output 09/25/21 09/26/21 09/26/21 22:59 06:59 14:59 Intake Total 1315 150 415 Output Total 75 Balance 1315 75 415 Lab Results Last 24 Hours: Laboratory Results - last 24 hr 09/25/21 09/25/21 09/26/21 Range/Units 16:12 16:50 06:00 WBC 5.16 (4.23-9.07) K/mm3 RBC 4.11 L (4.63-6.08) M/mm3 Hgb 13.5 L (13.7-17.5) gm/dl Hct 41.3 (40.1-51.0) % MCV 100.5 H (79.0-92.2) fl MCH 32.8 H (25.7-32.2) pg MCHC 32.7 (32.2-35.5) g/dl RDW Std Deviation 51.7 H (35.1-43.9) fL Plt Count 125 L (163-337) K/mm3 MPV 11.5 (9.4-12.3) fl Neut % (Auto) 63.7 (34.0-67.9) % Lymph % (Auto) 14.7 L (21.8-53.1) % [place] % (Auto) 16.5 H (5.3-12.2) % Eos % (Auto) 4.5 (0.8-7.0) Baso % (Auto) 0.4 (0.1-1.2) % Neut # (Auto) 3.29 (1.78-5.38) K/mm3 Lymph # (Auto) 0.76 L (1.32-3.57) K/mm3 [place] # (Auto) 0.85 H (0.30-0.82) K/mm3 Eos # (Auto) 0.23 (0.04-0.54) K/mm3 Baso # (Auto) 0.02 (0.01-0.08) K/mm3 Sodium (136-145) mEq/L Potassium (3.5-5.1) mEq/L Chloride (98-107) mEq/L Carbon Dioxide (21-32) mEq/L Anion Gap (5-15) BUN (7-18) mg/dL Creatinine (0.7-1.3) mg/dL Est Cr Clr Drug Dosing mL/min Estimated GFR (MDRD) (>60) mL/min BUN/Creatinine Ratio (14-18) Glucose (70-99) mg/dL POC Glucose 180 H (70-99) mg/dL Calcium (8.5-10.1) mg/dL Total Bilirubin (0.2-1.0) mg/dL AST (15-37) U/L ALT (16-63) U/L Alkaline Phosphatase (46-116) U/L Total Protein (6.4-8.2) g/dl Albumin (3.4-5.0) g/dl Globulin gm/dL Albumin/Globulin Ratio (1-2) SARS-CoV-2 RNA ([facility]) Negative (NEGATIVE) 09/26/21 Range/Units 07:00 WBC (4.23-9.07) K/mm3 RBC (4.63-6.08) M/mm3 Hgb (13.7-17.5) gm/dl Hct (40.1-51.0) % MCV (79.0-92.2) fl MCH (25.7-32.2) pg MCHC (32.2-35.5) g/dl RDW Std Deviation (35.1-43.9) fL Plt Count (163-337) K/mm3 MPV (9.4-12.3) fl Neut % (Auto) (34.0-67.9) % Lymph % (Auto) (21.8-53.1) % [place] % (Auto) (5.3-12.2) % Eos % (Auto) (0.8-7.0) Baso % (Auto) (0.1-1.2) % Neut # (Auto) (1.78-5.38) K/mm3 Lymph # (Auto) (1.32-3.57) K/mm3 [place] # (Auto) (0.30-0.82) K/mm3 Eos # (Auto) (0.04-0.54) K/mm3 Baso # (Auto) (0.01-0.08) K/mm3 Sodium 142 (136-145) mEq/L Potassium 4.2 (3.5-5.1) mEq/L Chloride 108 H (98-107) mEq/L Carbon Dioxide 25 (21-32) mEq/L Anion Gap 13.2 (5-15) BUN 22 H (7-18) mg/dL Creatinine 1.4 H (0.7-1.3) mg/dL Est Cr Clr Drug Dosing 37.17 mL/min Estimated GFR (MDRD) 48 (>60) mL/min BUN/Creatinine Ratio 15.7 (14-18) Glucose 137 H (70-99) mg/dL POC Glucose (70-99) mg/dL Calcium 8.5 (8.5-10.1) mg/dL Total Bilirubin 0.7 (0.2-1.0) mg/dL AST 51 H (15-37) U/L ALT 48 (16-63) U/L Alkaline Phosphatase 73 (46-116) U/L Total Protein 6.0 L (6.4-8.2) g/dl Albumin 2.9 L (3.4-5.0) g/dl Globulin 3.1 gm/dL Albumin/Globulin Ratio 0.9 L (1-2) SARS-CoV-2 RNA ([facility]) (NEGATIVE) Rod Results Last 24 Hours: Microbiology 09/23/21 20:40 Urine Culture - Final Urine Enterobacter Aerogenes Med Orders - Current: Current Medications Acetaminophen (Acetaminophen 325 Mg Tab) 650 mg PO Q4H SURESH Last Admin: 09/26/21 12:07 Dose: 650 mg Documented by: Apixaban (Apixaban 5 Mg Tab) 10 mg PO BID [facility] Stop: 09/30/21 09:01 Last Admin: 09/26/21 08:38 Dose: 10 mg Documented by: Apixaban (Apixaban 5 Mg Tab) 5 mg PO BID [facility] Artificial Tears (Carboxymethylcellulose Sodium 1% Ophth Gel 15 Ml Bottle) 0 ml EYEBOTH BID PRN PRN Reason: Dry Eyes Clopidogrel Bisulfate (Clopidogrel 75 Mg Tab) 75 mg PO DAILY [facility] Last Admin: 09/26/21 08:39 Dose: 75 mg Documented by: Fluticasone Propionate (Fluticasone Propionate Nasal [place] 16 Gm Bottle) 0 gm NASBOTH BID PRN PRN Reason: Allergies Glimepiride (Glimepiride 2 Mg Tab) 1 mg PO DAILY [facility] Last Admin: 09/26/21 08:35 Dose: 1 mg Documented by: Metformin HCl (Metformin 500 Mg Tab) 500 mg PO 0700,1200 [facility] Last Admin: 09/26/21 12:06 Dose: 500 mg Documented by: Nystatin (Nystatin Topical Powder 15 Gm Bottle) 1 gm TOP BID [facility] Last Admin: 09/26/21 08:39 Dose: 1 applic Documented by: Pantoprazole Sodium (Pantoprazole 40 Mg Tab.Cr) 40 mg PO DAILY [facility] Last Admin: 09/26/21 08:39 Dose: 40 mg Documented by: Rosuvastatin Calcium (Rosuvastatin 10 Mg Tab) 10 mg PO QPM [facility] Last Admin: 09/25/21 17:15 Dose: 10 mg Documented by: Tamsulosin HCl (Tamsulosin 0.4 Mg Cap.Er) 0.4 mg PO BEDTIME [facility] Last Admin: 09/25/21 20:33 Dose: 0.4 mg Documented by: Trimethoprim/Sulfamethoxazole (Sulfamethoxazole/Trimethoprim 800-160 Mg Tab) 1 tab PO BID [facility] Last Admin: 09/26/21 12:07 Dose: 1 tab Documented by: Discontinued Medications Acetaminophen (Acetaminophen 325 Mg Tab) 650 mg PO Q4H PRN PRN Reason: Pain Last Admin: 09/25/21 09:40 Dose: 650 mg Documented by: Apixaban (Apixaban 5 Mg Tab) 10 mg PO ONETIME STA Stop: 09/24/21 00:05 Last Admin: 09/24/21 00:22 Dose: 10 mg Documented by: Aspirin (Aspirin 81 Mg Tab.Chew) 81 mg PO DAILY [facility] Heparin Sodium (Porcine) (Heparin Sodium 5,000 Units/Ml Vial) 5,000 units I VPUSH .BOLUS STA Stop: 09/23/21 22:50 Last Admin: 09/23/21 23:03 Dose: 5,000 units Documented by: Sodium Chloride (Normal Saline) 1,000 mls @ 150 mls/hr IV ASDIRECTED SURESH Last Admin: 09/23/21 22:11 Dose: 150 mls/hr Documented by: Sodium Chloride (Normal Saline) 100 mls @ 70 mls/min IV ASDIRECTED SURESH Last Admin: 09/23/21 22:10 Dose: 70 mls/min Documented by: Heparin Sodium/Dextrose (Heparin 25,000 Units In D5w 500 Ml) 25,000 units in 500 mls @ 26 mls/hr IV TITRATE [facility]; Protocol Last Admin: 09/23/21 23:03 Dose: 1,300 units/hr, 26 mls/hr Documented by: Sodium Chloride (Normal Saline) 1,000 mls @ 100 mls/hr IV ASDIRECTED [facility] Last Admin: 09/25/21 01:38 Dose: 100 mls/hr Documented by: Ceftriaxone Sodium 2 gm/ (Sodium Chloride) 100 mls @ 200 mls/hr IV Q24H [facility] Last Admin: 09/25/21 18:43 Dose: 200 mls/hr Documented by: Ibuprofen (Ibuprofen 400 Mg Tab) 400 mg PO ONETIME ONE Stop: 09/25/21 16:31 Last Admin: 09/25/21 16:41 Dose: 400 mg Documented by: Iopamidol (Iopamidol 755 Mg/Ml 100 Ml Bottle) 100 ml IVPUSH ONETIME ONE Stop: 09/23/21 21:44 Last Admin: 09/23/21 22:10 Dose: 100 ml Documented by: Metformin HCl (Metformin 500 Mg Tab) 500 mg PO ASDIRECTED [facility] Metformin HCl (Metformin 500 Mg Tab) 1,000 mg PO QPM [facility] Nitrofurantoin Macrocrystals (Nitrofurantoin Monohydrate/Macrocrystalline 100 Mg Cap) 100 mg PO ONETIME STA Stop: 09/23/21 21:37 Last Admin: 09/23/21 22:11 Dose: 100 mg Documented by: Nitrofurantoin Macrocrystals (Nitrofurantoin Monohydrate/Macrocrystalline 100 Mg Cap) 100 mg PO BID [facility] Last Admin: 09/26/21 08:35 Dose: 100 mg Documented by: Non-Formulary Medication (Ubidecarenone) 100 mg PO DAILY [facility] Last Admin: 09/24/21 11:50 Dose: Not Given Documented by: Sodium Chloride (Sodium Chloride 0.9% 10 Ml Sdv) 10 ml FLUSH ONETIME ONE Stop: 09/23/21 21:44 Last Admin: 09/23/21 22:10 Dose: 10 ml Documented by: - Exam Quality Assessment: Supplemental Oxygen General: Alert, Oriented HEENT: Pupils Equal, Mucous Membr. Moist/[place] Neck: Supple Lungs: Clear to Auscultation, Normal Respiratory Effort Cardiovascular: Regular Rate, Regular Rhythm GI/Abdominal Exam: Normal Bowel Sounds, Soft, Non-Tender, No Organomegaly, No Di stention, No Abnormal Bruit, No Mass Extremities: Normal Inspection, Normal Range of Motion, Non-Tender, No Pedal Edema, Normal Capillary Refill Skin: Warm, Dry, Intact Psy/Mental Status: Alert, Normal Affect, Normal Mood - Patient Data Lab Results Last 24 hrs: Laboratory Results - last 24 hr 09/25/21 09/25/21 09/26/21 Range/Units 16:12 16:50 06:00 WBC 5.16 (4.23-9.07) K/mm3 RBC 4.11 L (4.63-6.08) M/mm3 Hgb 13.5 L (13.7-17.5) gm/dl Hct 41.3 (40.1-51.0) % MCV 100.5 H (79.0-92.2) fl MCH 32.8 H (25.7-32.2) pg MCHC 32.7 (32.2-35.5) g/dl RDW Std Deviation 51.7 H (35.1-43.9) fL Plt Count 125 L (163-337) K/mm3 MPV 11.5 (9.4-12.3) fl Neut % (Auto) 63.7 (34.0-67.9) % Lymph % (Auto) 14.7 L (21.8-53.1) % [place] % (Auto) 16.5 H (5.3-12.2) % Eos % (Auto) 4.5 (0.8-7.0) Baso % (Auto) 0.4 (0.1-1.2) % Neut # (Auto) 3.29 (1.78-5.38) K/mm3 Lymph # (Auto) 0.76 L (1.32-3.57) K/mm3 [place] # (Auto) 0.85 H (0.30-0.82) K/mm3 Eos # (Auto) 0.23 (0.04-0.54) K/mm3 Baso # (Auto) 0.02 (0.01-0.08) K/mm3 Sodium (136-145) mEq/L Potassium (3.5-5.1) mEq/L Chloride (98-107) mEq/L Carbon Dioxide (21-32) mEq/L Anion Gap (5-15) BUN (7-18) mg/dL Creatinine (0.7-1.3) mg/dL Est Cr Clr Drug Dosing mL/min Estimated GFR (MDRD) (>60) mL/min BUN/Creatinine Ratio (14-18) Glucose (70-99) mg/dL POC Glucose 180 H (70-99) mg/dL Calcium (8.5-10.1) mg/dL Total Bilirubin (0.2-1.0) mg/dL AST (15-37) U/L ALT (16-63) U/L Alkaline Phosphatase (46-116) U/L Total Protein (6.4-8.2) g/dl Albumin (3.4-5.0) g/dl Globulin gm/dL Albumin/Globulin Ratio (1-2) SARS-CoV-2 RNA ([facility]) Negative (NEGATIVE) 09/26/21 Range/Units 07:00 WBC (4.23-9.07) K/mm3 RBC (4.63-6.08) M/mm3 Hgb (13.7-17.5) gm/dl Hct (40.1-51.0) % MCV (79.0-92.2) fl MCH (25.7-32.2) pg MCHC (32.2-35.5) g/dl RDW Std Deviation (35.1-43.9) fL Plt Count (163-337) K/mm3 MPV (9.4-12.3) fl Neut % (Auto) (34.0-67.9) % Lymph % (Auto) (21.8-53.1) % [place] % (Auto) (5.3-12.2) % Eos % (Auto) (0.8-7.0) Baso % (Auto) (0.1-1.2) % Neut # (Auto) (1.78-5.38) K/mm3 Lymph # (Auto) (1.32-3.57) K/mm3 [place] # (Auto) (0.30-0.82) K/mm3 Eos # (Auto) (0.04-0.54) K/mm3 Baso # (Auto) (0.01-0.08) K/mm3 Sodium 142 (136-145) mEq/L Potassium 4.2 (3.5-5.1) mEq/L Chloride 108 H (98-107) mEq/L Carbon Dioxide 25 (21-32) mEq/L Anion Gap 13.2 (5-15) BUN 22 H (7-18) mg/dL Creatinine 1.4 H (0.7-1.3) mg/dL Est Cr Clr Drug Dosing 37.17 mL/min Estimated GFR (MDRD) 48 (>60) mL/min BUN/Creatinine Ratio 15.7 (14-18) Glucose 137 H (70-99) mg/dL POC Glucose (70-99) mg/dL Calcium 8.5 (8.5-10.1) mg/dL Total Bilirubin 0.7 (0.2-1.0) mg/dL AST 51 H (15-37) U/L ALT 48 (16-63) U/L Alkaline Phosphatase 73 (46-116) U/L Total Protein 6.0 L (6.4-8.2) g/dl Albumin 2.9 L (3.4-5.0) g/dl Globulin 3.1 gm/dL Albumin/Globulin Ratio 0.9 L (1-2) SARS-CoV-2 RNA ([facility]) (NEGATIVE) Result Diagrams: 09/26/21 06:00 09/26/21 07:00 Rod Results Last 24 hrs: Microbiology 09/23/21 20:40 Urine Culture - Final Urine Enterobacter Aerogenes Sepsis Event Note - Evaluation Sepsis Screening Result: No Definite Risk - Focused Exam Vital Signs: Vital Signs Temp Pulse Resp BP Pulse Ox 09/26/21 12:10 88 97 09/26/21 12:05 97.3 F 14 141/84 H 09/26/21 08:27 98.2 F 93 20 152/71 H 93 L 09/26/21 03:16 98.2 F 81 18 137/78 94 L - Problem List & Annotations (1) Fall at home SNOMED Code(s): 94887577 Code(s): W19.XXXA - UNSPECIFIED FALL, INITIAL ENCOUNTER; Y92.009 - UNSP PLACE IN UNSP NON-INSTITUT (PRIVATE) RESIDENCE PLACE Status: Acute Current Visit: Yes (2) Pulmonary embolus SNOMED Code(s): 24262851 Code(s): I26.99 - OTHER PULMONARY EMBOLISM WITHOUT ACUTE COR PULMONALE Status: Acute Priority: High Current Visit: Yes Qualifiers: Pulmonary embolism type: single subsegmental (without acute cor pulmonale) Qualified Code(s): I26.93 - Single subsegmental pulmonary embolism without acute cor pulmonale (3) Renal insufficiency SNOMED Code(s): 006783443, 737684151 Code(s): N28.9 - DISORDER OF KIDNEY AND URETER, UNSPECIFIED Status: Acute Current Visit: Yes (4) UTI (urinary tract infection) SNOMED Code(s): 28653298 Code(s): N39.0 - URINARY TRACT INFECTION, SITE NOT SPECIFIED Status: Acute Current Visit: Yes (5) Hyperglycemia due to type 2 diabetes mellitus SNOMED Code(s): 595577082230608, 510359517638566 Code(s): E11.65 - TYPE 2 DIABETES MELLITUS WITH HYPERGLYCEMIA Status: Chronic Priority: High Current Visit: Yes Qualifiers: Diabetes mellitus intermediate insulin use: without termination clerk use Qualified Code(s): E11.65 - Type 2 diabetes mellitus with hyperglycemia - Problem List Review Problem List Initiated/Reviewed/Updated: Yes - My Orders Last 24 Hours: My Active Orders 09/26/21 11:00 Sulfamethoxazole/Trimethoprim [Septra DS] 1 tab PO BID 09/27/21 06:00 CORONAVIRUS COVID-19 [facility] [[facility]LE[facility]] Routine - Plan Plan:: The patient is an 86-year-old gentleman who had been admitted to acute hospitalization secondary to hypoxia associated with pulmonary emboli. Patient was started on Eliquis. The patient CT scan showed equivocal sign of s ubsegmental pulmonary emboli however, prudent choice would be to treated as pulmonary emboli. The patient was also noted to have an elevated D-dimer. I have ordered repeat laboratory studies for the morning. The patient will also be kept on oxygen to help keep his saturations around 92%. The patient has chronic kidney disease and his EGFR is 44mL/min and as result his medications will be renally dosed. He will also be kept on diabetic diet as tolerated. Patient is at the CT with contrast the patient's Metformin is held. The patient is also taking Plavix and his aspirin has been held as well. PT OT has been ordered for the patient. It was also reported that the patient had been driving without difficulty at home. The patient's initial resuscitation code was full code however, I did have a direct discussion with the patient and he prefers to be in a DO NOT INTUBATE DO NOT RESUSCITATE category. This was changed to reflect the patient's wishes. We will continue treatment. The patient should be appropriate for discharge in 1 to 2 days with possible placement in skilled facility. 09/25/2021 The patient is an 86-year-old gentleman who had been admitted to acute hospitalization due to possible pulmonary emboli. The patient has been started on Eliquis. He has been tolerating this well. This will continue. The patient is currently awaiting placement. Patient will be on oxygen to keep his saturations at 90 to 92%. Diabetic diet as tolerated. The patient's Metformin should be restarted tomorrow as he had 2 CTs with contrast this being done to help reduce the chance of contrast-induced nephropathy.. The patient is taking Plavix as an antiplatelet therapy and this will be continued. The patient is to continue on his appropriate diabetic diet. Repeat laboratory studies have been ordered. PT OT has recommended SNF placement with further PT OT prior to returning home. He should be appropriate for discharge to SNF tomorrow. The patient will likely need to be on long-term Eliquis. 09/26/2021 86-year-old male with equivocal small pulmonary embolism within the right subsegmental branch of the right lower lung. This could also represent artifact. He did have a fall which brought him to the hospital 2 days ago. Patient was started on Eliquis. He is requiring supplemental oxygen at 2 L via nasal cannula. Urine culture grew out Enterobacter aerogenes sensitive to fluoroquinolones, ceftriaxone, and Bactrim. Is intermediately sensitive to nitrofurantoin and resistant to cefazolin. Hemoglobin has been stable and currently is 13.5. D-dimer decreased from a 1.26 on the 28th to 0.75 on the 30th. Blood sugars range from 137-199 since admission. Renal function is stable with creatinine of 1.4 and estimated GFR 48. BUN is 22. Patient is ready for discharge to a fdc facility for continued PT and OT. Plan is to discharge patient home tomorrow. Because of his falls and hypoxemia I will recommend continuing on anticoagulation for up to 3 months.
[2021-09-26] MEDS: Rosuvastatin 10 MG Tab PO SCH ×2 (16:57→17:00)
[2021-09-26] MEDS: Tamsulosin 0.4 MG Cap.ER PO SCH (20:04)
[2021-09-27] MEDS: Acetaminophen 325 MG Tab PO SCH ×4 (01:31→12:26)
[2021-09-27] MEDS: Glimepiride 2 MG Tab PO SCH (08:56)
[2021-09-27] MEDS: metFORMIN 500 MG Tab PO SCH ×2 (08:56→12:26)
[2021-09-27] MEDS: Sulfamethoxazole/Trimethoprim 800-160 MG Tab PO SCH (08:57)
[2021-09-27] MEDS: Apixaban 5 MG Tab PO SCH (08:57)
[2021-09-27] MEDS: Clopidogrel 75 MG Tab PO SCH (08:57)
[2021-09-27] MEDS: Nystatin Topical Powder 15 GM Bottle TOP SCH (08:57)
[2021-09-27] MEDS: Pantoprazole 40 MG Tab.CR PO SCH (08:57)
[2021-09-27 09:09] VITALS: BP 136/97; PULSE 86
--- NOTE | 2021-09-27 12:16 | PCM.DCSUM1 ---
Discharge Summary - Hospital Course HPI Initial Comments: The patient is an 86-year-old gentleman who was brought to the emergency department by his daughter after he fell at home. The patient had difficulty in getting up. The patient had reported to the emergency room physician that he was using his walker and got into the kitchen and tried to walk around but was unsuccessful and slid down the refrigerator. The patient says at that time he was not injured. The patient had a 3-week history of fatigue hot flashes and no fever. He had been seen previously in the emergency department. The patient says today that he is feeling better his biggest concern is that he has been unable to urinate properly. He was noted to be confused in the emergency department. Late yesterday evening the patient had a CT scan of his chest which showed an equivocal small PE in the right subsegmental branch of the right lower lung. The patient has not had any shortness of breath. The patient was hypoxic on room air in the ER. Assessment/Plan Comment:: The patient is an 86-year-old gentleman who had been admitted to acute hospitalization secondary to hypoxia associated with pulmonary emboli. Patient was started on Eliquis. The patient CT scan showed equivocal sign of subsegmental pulmonary emboli however, prudent choice would be to treated as pulmonary emboli. The patient was also noted to have an elevated D-dimer. I have ordered repeat laboratory studies for the morning. The patient will also be kept on oxygen to help keep his saturations around 92%. The patient has chronic kidney disease and his EGFR is 44mL/min and as result his medications will be renally dosed. He will also be kept on diabetic diet as tolerated. Patient is at the CT with contrast the patient's Metformin is held. The patient is also taking Plavix and his aspirin has been held as well. PT OT has been ordered for the patient. It was also reported that the patient had been driving without difficulty at home. The patient's initial resuscitation code was full code however, I did have a direct discussion with the patient and he prefers to be in a DO NOT INTUBATE DO NOT RESUSCITATE category. This was changed to reflect the patient's wishes. We will continue treatment. The patient should b e appropriate for discharge in 1 to 2 days with possible placement in skilled facility. - Mortality Measure Prognosis:: Poor Diagnosis: Stroke: No - Discharge Data Discharge Date: 09/27/21 Discharge Disposition: DC/[facility] to [facility] Condition: Good - Referral to Home Health Primary Care Physician: Gerardo Jesus MD - Discharge Diagnosis/Problem(s) (1) Fall at home SNOMED Code(s): 89862147 ICD Code: W19.XXXA - UNSPECIFIED FALL, INITIAL ENCOUNTER; Y92.009 - UNSP PLACE IN UNSP NON-INSTITUT (PRIVATE) RESIDENCE PLACE Status: Acute (2) Pulmonary embolus SNOMED Code(s): 97390084 ICD Code: I26.99 - OTHER PULMONARY EMBOLISM WITHOUT ACUTE COR PULMONALE Status: Acute Priority: High Qualifiers: Pulmonary embolism type: single subsegmental (without acute cor pulmonale) Qualified Code(s): I26.93 - Single subsegmental pulmonary embolism without acute cor pulmonale (3) Renal insufficiency SNOMED Code(s): 387353102, 623249899 ICD Code: N28.9 - DISORDER OF KIDNEY AND URETER, UNSPECIFIED Status: Acute (4) UTI (urinary tract infection) SNOMED Code(s): 23828677 ICD Code: N39.0 - URINARY TRACT INFECTION, SITE NOT SPECIFIED Status: Acute (5) Hyperglycemia due to type 2 diabetes mellitus SNOMED Code(s): 799834029268370, 088662261786441 ICD Code: E11.65 - TYPE 2 DIABETES MELLITUS WITH HYPERGLYCEMIA Status: Chronic Priority: High Qualifiers: Diabetes mellitus retirement insulin use: without geographic information systems engineer use Qualified Code(s): E11.65 - Type 2 diabetes mellitus with hyperglycemia - Patient Summary/Data Consults: Consultations 09/24/21 08:53 PT Evaluation and Treatment [CONS] Routine 09/24/21 08:54 OT Evaluation and Treatment [CONS] Routine Hospital Course: 09/25/2021 The patient is an 86-year-old gentleman who had been admitted to acute hospitalization due to possible pulmonary emboli. The patient has been started on Eliquis. He has been tolerating this well. This will continue. The patient is currently awaiting placement. Patient will be on oxygen to keep his saturations at 90 to 92%. Diabetic diet as tolerated. The patient's Metformin should be restarted tomorrow as he had 2 CTs with contrast this being done to help reduce the chance of contrast-induced nephropathy.. The patient is taking Plavix as an antiplatelet therapy and this will be continued. The patient is to continue on his appropriate diabetic diet. Repeat laboratory studies have been ordered. PT OT has recommended SNF placement with further PT OT prior to returning home. He should be appropriate for discharge to SNF tomorrow. The patient will likely need to be on long-term Eliquis. 09/26/2021 86-year-old male with equivocal small pulmonary embolism within the right subsegmental branch of the right lower lung. This could also represent artifact. He did have a fall which brought him to the hospital 2 days ago. Patient was started on Eliquis. He is requiring supplemental oxygen at 2 L via nasal cannula. Urine culture grew out Enterobacter aerogenes sensitive to fluoroquinolones, ceftriaxone, and Bactrim. Is intermediately sensitive to nitrofurantoin and resistant to cefazolin. Hemoglobin has been stable and currently is 13.5. D-dimer decreased from a 1.26 on the 28th to 0.75 on the 30th. Blood sugars range from 137-199 since admission. Renal function is stable with creatinine of 1.4 and estimated GFR 48. BUN is 22. Patient is ready for discharge to a long term facility for continued PT and OT. Plan is to discharge patient home tomorrow. Because of his falls and hypoxemia I will recommend continuing on anticoagulation for up to 3 months. 09/27/2021 86-year-old male with equivocal small pulmonary embolism on Eliquis is currently off oxygen. Patient is on Bactrim for Enterobacter UTI. Patient is being discharged to long-term care facility. - Patient Instructions Diet: Diabetic Diet Activity: As Tolerated Driving: May Drive Today Showering/Bathing: May Shower Notify Provider of: Fever, Nausea and/or Vomiting Other/Special Instructions: Follow up with PCP next week. - Discharge Plan *PRESCRIPTION DRUG MONITORING PROGRAM REVIEWED*: Not Applicable *COPY OF PRESCRIPTION DRUG MONITORING REPORT IN PATIENT LUIS: Not Applicable Prescriptions/Med Rec: Rosuvastatin [Crestor] 10 mg PO QPM #60 tab Apixaban [Eliquis] 5 mg PO BID #30 tablet Tamsulosin [Flomax] 0.4 mg PO BEDTIME #30 tab Fluticasone Propionate [Flonase] 1 spray NASBOTH BID PRN #1 bottle PRN Reason: Allergies Glimepiride 1 mg PO DAILY #30 tab metFORMIN [Glucophage] 500 mg PO 0700,1200 #60 tab Pantoprazole 20 mg PO DAILY #30 tab Clopidogrel [Plavix] 75 mg PO DAILY #30 tab Sulfamethoxazole/Trimethoprim [Septra DS] 1 tab PO BID #10 tablet Home Medications: Home Meds Propylene Glycol [Systane Complete] 1 drop EYEBOTH BID PRN 09/23/21 [History] metFORMIN [Glucophage] 1,000 mg PO QPM 09/23/21 [History] Acetaminophen [Tylenol] 650 mg PO Q4H tablet 09/27/21 [Rx] Apixaban [Eliquis] 5 mg PO BID #30 tablet 09/27/21 [Rx] Clopidogrel [Plavix] 75 mg PO DAILY #30 tab 09/27/21 [Rx] Fluticasone Propionate [Flonase] 1 spray NASBOTH BID PRN #1 bottle 09/27/21 [Rx] Glimepiride 1 mg PO DAILY #30 tab 09/27/21 [Rx] Pantoprazole 20 mg PO DAILY #30 tab 09/27/21 [Rx] Rosuvastatin [Crestor] 10 mg PO QPM #60 tab 09/27/21 [Rx] Sulfamethoxazole/Trimethoprim [Septra DS] 1 tab PO BID #10 tablet 09/27/21 [Rx] Tamsulosin [Flomax] 0.4 mg PO BEDTIME #30 tab 09/27/21 [Rx] metFORMIN [Glucophage] 500 mg PO 0700,1200 #60 tab 09/27/21 [Rx] Oxygen Therapy Mode: Room Air Patient Handouts: CPAP and BPAP Information, Apixaban oral tablets Forms: ED Department Discharge Referrals: Mitch German MD [Ordering Only Provider] - (Follow up as needed) Randal Elena II, DPM [Physician] - (follow up as needed) Gerardo Jesus MD [Primary Care Provider] - 10/03/21 10:00 am (Patient will be seen by Dr. Stanley who is covering for Dr. Jesus at the [facility] on rounds. On October 03 around 10:00) - Discharge Summary/Plan Comment DC Time >30 min.: Yes Total # of Minutes for Discharge Time: 35 Total time spent includes seeing the patient, doing discharge paperwork, and arranging care. - General Info Date of Service: 09/27/21 Admission Dx/Problem (Free Text: Admission Diagnosis/Problem Admission Diagnosis/Problem Subjective Update: 86-year-old male with no current complaints. Patient states he is feeling well. He is on on room air. He is looking forward to physical therapy to get stronger. Functional Status: Reports: Pain Controlled - Review of Systems HEENT: Reports: No Symptoms Pulmonary: Reports: No Symptoms Cardiovascular: Reports: No Symptoms Gastrointestinal: Reports: No Symptoms Musculoskeletal: Reports: No Symptoms - Patient Data Vitals - Most Recent: Last Vital Signs Temp 98.4 F 09/27/21 07:52 Pulse 86 09/27/21 07:52 Resp 24 H 09/27/21 07:52 BP 136/97 H 09/27/21 07:52 Pulse Ox 94 L 09/27/21 07:52 Weight - Most Recent: 276 lb 3.2 oz I&O - Last 24 hours: Intake & Output 09/26/21 09/27/21 09/27/21 22:59 06:59 14:59 Intake Total 1100 700 Output Total 250 200 Balance 850 500 HOMER Results - Last 24 hrs: Microbiology 09/25/21 16:39 Blood Culture - Preliminary Blood - Venous - Lab Draw 09/23/21 20:40 Urine Culture - Final Urine Enterobacter Aerogenes Med Orders - Current: Current Medications Acetaminophen (Acetaminophen 325 Mg Tab) 650 mg PO Q4H [facility] Last Admin: 09/27/21 08:57 Dose: 650 mg Documented by: Apixaban (Apixaban 5 Mg Tab) 10 mg PO BID [facility] Stop: 09/30/21 09:01 Last Admin: 09/27/21 08:57 Dose: 10 mg Documented by: Apixaban (Apixaban 5 Mg Tab) 5 mg PO BID [facility] Artificial Tears (Carboxymethylcellulose Sodium 1% Ophth Gel 15 Ml Bottle) 0 ml EYEBOTH BID PRN PRN Reason: Dry Eyes Clopidogrel Bisulfate (Clopidogrel 75 Mg Tab) 75 mg PO DAILY [facility] Last Admin: 09/27/21 08:57 Dose: 75 mg Documented by: Fluticasone Propionate (Fluticasone Propionate Nasal [place] 16 Gm Bottle) 0 gm NASBOTH BID PRN PRN Reason: Allergies Glimepiride (Glimepiride 2 Mg Tab) 1 mg PO DAILY [facility] Last Admin: 12/02/21 08:56 Dose: 1 mg Documented by: Metformin HCl (Metformin 500 Mg Tab) 500 mg PO 0700,1200 [facility] Last Admin: 09/27/21 08:56 Dose: 500 mg Documented by: Nystatin (Nystatin Topical Powder 15 Gm Bottle) 1 gm TOP BID [facility] Last Admin: 09/27/21 08:57 Dose: 1 applic Documented by: Pantoprazole Sodium (Pantoprazole 40 Mg Tab.Cr) 40 mg PO DAILY [facility] Last Admin: 09/27/21 08:57 Dose: 40 mg Documented by: Rosuvastatin Calcium (Rosuvastatin 10 Mg Tab) 10 mg PO QPM [facility] Last Admin: 09/26/21 17:00 Dose: Not Given Documented by: Tamsulosin HCl (Tamsulosin 0.4 Mg Cap.Er) 0.4 mg PO BEDTIME [facility] Last Admin: 09/26/21 20:04 Dose: 0.4 mg Documented by: Trimethoprim/Sulfamethoxazole (Sulfamethoxazole/Trimethoprim 800-160 Mg Tab) 1 tab PO BID [facility] Last Admin: 09/27/21 08:57 Dose: 1 tab Documented by: Discontinued Medications Acetaminophen (Acetaminophen 325 Mg Tab) 650 mg PO Q4H PRN PRN Reason: Pain Last Admin: 09/25/21 09:40 Dose: 650 mg Documented by: Apixaban (Apixaban 5 Mg Tab) 10 mg PO ONETIME STA Stop: 09/24/21 00:05 Last Admin: 09/24/21 00:22 Dose: 10 mg Documented by: Aspirin (Aspirin 81 Mg Tab.Chew) 81 mg PO DAILY [facility] Heparin Sodium (Porcine) (Heparin Sodium 5,000 Units/Ml Vial) 5,000 units IVPUSH .BOLUS STA Stop: 09/23/21 22:50 Last Admin: 09/23/21 23:03 Dose: 5,000 units Documented by: Sodium Chloride (Normal Saline) 1,000 mls @ 150 mls/hr IV ASDIRECTED [facility] Last Admin: 09/23/21 22:11 Dose: 150 mls/hr Documented by: Sodium Chloride (Normal Saline) 100 mls @ 70 mls/min IV ASDIRECTED [facility] Last Admin: 09/23/21 22:10 Dose: 70 mls/min Documented by: Heparin Sodium/Dextrose (Heparin 25,000 Units In D5w 500 Ml) 25,000 units in 500 mls @ 26 mls/hr IV TITRATE SURESH; Protocol Last Admin: 09/23/21 23:03 Dose: 1,300 units/hr, 26 mls/hr Documented by: Sodium Chloride (Normal Saline) 1,000 mls @ 100 mls/hr IV ASDIRECTED [facility] Last Admin: 09/25/21 01:38 Dose: 100 mls/hr Documented by: Ceftriaxone Sodium 2 gm/ (Sodium Chloride) 100 mls @ 200 mls/hr IV Q24H [facility] Last Admin: 09/25/21 18:43 Dose: 200 mls/hr Documented by: Ibuprofen (Ibuprofen 400 Mg Tab) 400 mg PO ONETIME ONE Stop: 09/25/21 16:31 Last Admin: 09/25/21 16:41 Dose: 400 mg Documented by: Iopamidol (Iopamidol 755 Mg/Ml 100 Ml Bottle) 100 ml IVPUSH ONETIME ONE Stop: 09/23/21 21:44 Last Admin: 09/23/21 22:10 Dose: 100 ml Documented by: Metformin HCl (Metformin 500 Mg Tab) 500 mg PO ASDIRECTED [facility] Metformin HCl (Metformin 500 Mg Tab) 1,000 mg PO QPM [facility] Nitrofurantoin Macrocrystals (Nitrofurantoin Monohydrate/Macrocrystalline 100 Mg Cap) 100 mg PO ONETIME STA Stop: 09/23/21 21:37 Last Admin: 09/23/21 22:11 Dose: 100 mg Documented by: Nitrofurantoin Macrocrystals (Nitrofurantoin Monohydrate/Macrocrystalline 100 Mg Cap) 100 mg PO BID [facility] Last Admin: 09/26/21 08:35 Dose: 100 mg Documented by: Non-Formulary Medication (Ubidecarenone) 100 mg PO DAILY [facility] Last Admin: 09/24/21 11:50 Dose: Not Given Documented by: Sodium Chloride (Sodium Chloride 0.9% 10 Ml Sdv) 10 ml FLUSH ONETIME ONE Stop: 09/23/21 21:44 Last Admin: 09/23/21 22:10 Dose: 10 ml Documented by: - Exam Quality Assessment: Denies: Supplemental Oxygen General: Reports: Alert, Oriented HEENT: Reports: Pupils Equal, Mucous Membr. Moist/[address] Neck: Reports: Supple Lungs: Reports: Clear to Auscultation, Normal Respiratory Effort Cardiovascular: Reports: Regular Rate, Regular Rhythm GI/Abdominal Exam: Normal Bowel Sounds, Soft, Non-Tender, No Distention Extremities: Normal Inspection, Normal Range of Motion, Non-Tender, Normal Capillary Refill, Pedal Edema (1+) Skin: Reports: Warm, Dry, Intact Psy/Mental Status: Reports: Alert, Normal Affect, Normal Mood
[2021-09-30] MEDS ORDERED: Apixaban 5 MG Tab PO SCH (21:00)
== END 2021-09-27 13:05 | DRG 176 ==
LOC: JD.ED 18:57 → JD.MS 09-24 01:00 → OBSVTOIN 09-24 09:51
PROVIDERS: ADMIT Internal Medicine; ATTEND Internal Medicine
DX: I26.93 Single subsegmental thrombotic pulmonary embolism without acute cor pulmonale (principal); R53.1 Weakness; N39.0 Urinary tract infection, site not specified; R53.81 Other malaise; H91.93 Unspecified hearing loss, bilateral; E78.00 Pure hypercholesterolemia, unspecified; I77.9 Disorder of arteries and arterioles, unspecified; Z66 Do not resuscitate; M19.90 Unspecified osteoarthritis, unspecified site; N28.9 Disorder of kidney and ureter, unspecified; I69.311 Memory deficit following cerebral infarction; Z96.643 Presence of artificial hip joint, bilateral; E66.9 Obesity, unspecified; Z87.891 Personal history of nicotine dependence; Z88.8 Allergy status to other drugs, medicaments and biological substances; Z79.84 Long term (current) use of oral hypoglycemic drugs; Z79.02 Long term (current) use of antithrombotics/antiplatelets; Z79.82 Long term (current) use of aspirin; Z79.899 Other long term (current) drug therapy; R09.02 Hypoxemia; Z20.822 Contact with and (suspected) exposure to COVID-19; E11.65 Type 2 diabetes mellitus with hyperglycemia; N40.0 Benign prostatic hyperplasia without lower urinary tract symptoms; E78.5 Hyperlipidemia, unspecified; E03.9 Hypothyroidism, unspecified; I10 Essential (primary) hypertension; F32.A Depression, unspecified; Z86.73 Personal history of transient ischemic attack (TIA), and cerebral infarction without residual deficits; Z79.01 Long term (current) use of anticoagulants; Z90.49 Acquired absence of other specified parts of digestive tract; Z98.42 Cataract extraction status, left eye; Z98.41 Cataract extraction status, right eye; Z90.89 Acquired absence of other organs; W18.30XA Fall on same level, unspecified, initial encounter; Y92.009 Unspecified place in unspecified non-institutional (private) residence as the place of occurrence of the external cause
CPT/HCPCS: 0240U; 36415; 51798; 70450; 71045; 71275; 80053; 81001; 82947; 83735; 83880; 84484; 85007; 85025; 85027; 85379; 87040; 87086; 87088; 87186; 87641; 93005; 93306; 96365; 97110; 97116; 97162; 97530; 99285; 93010; 99223; 99232; 99239; A9270-GY; J0696; J1644; J7030; Q9967; U0002

== ENCOUNTER 2022-02-13 03:01 | Inpatient (IN) | payer MEDICARE, BC ==
[2022-02-13] MEDS ORDERED: Magnesium Sulfate/Water 2 GM in Premix Bag 1 BAG IV STA (05:41)
[2022-02-13] MEDS ORDERED: Nitrofurantoin Monohydrate/Macrocrystalline 100 MG Cap PO STA (05:42)
[2022-02-13] MEDS ORDERED: Fluticasone NASAL Spray 16 GM Bottle NASBOTH PRN (06:53)
[2022-02-13] MEDS ORDERED: Docusate Sodium 100 MG Cap PO PRN (06:55)
[2022-02-13] MEDS ORDERED: Ondansetron 4 MG/2 ML SDV IV PRN (06:55)
[2022-02-13] MEDS ORDERED: Carboxymethylcellulose Sodium 1% Ophth Gel 15 ML Bottle EYEBOTH PRN (07:11)
[2022-02-13 07:20] LABS: HEMOGLOBIN A1C 7.4 %
[2022-02-13] MEDS: Levothyroxine 50 MCG Tab PO SCH (09:36)
[2022-02-13] MEDS: metFORMIN 500 MG Tab PO SCH ×3 (09:37→17:35)
[2022-02-13] MEDS: Enoxaparin 40 MG/0.4 ML Syringe SUBCUT SCH (09:37)
[2022-02-13] MEDS: Glimepiride 2 MG Tab PO SCH (09:37)
[2022-02-13] MEDS: Pantoprazole 40 MG Tab.CR PO SCH (09:37)
[2022-02-13] MEDS: Aspirin 81 MG Tab.EC PO SCH (09:37)
[2022-02-13] MEDS: cefTRIAXone 1 GM in Sodium Chloride 0.9% 100 ML IV SCH (09:38)
[2022-02-13] MEDS: Insulin Regular, Human 100 Units/ML 3 ML Vial SUBCUT SCH ×3 (09:38→18:56)
[2022-02-13] MEDS: Rosuvastatin 10 MG Tab PO SCH (17:35)
[2022-02-13] MEDS ORDERED: Temazepam 7.5 MG Cap PO PRN (21:00)
[2022-02-13] MEDS: Tamsulosin 0.4 MG Cap.ER PO SCH (21:25)
[2022-02-13] MEDS: Nystatin Topical Powder 15 GM Bottle TOP SCH (21:46)
[2022-02-14] MEDS: Levothyroxine 50 MCG Tab PO SCH (06:08)
[2022-02-14] MEDS: metFORMIN 500 MG Tab PO SCH ×3 (08:28→17:47)
[2022-02-14] MEDS: Glimepiride 2 MG Tab PO SCH (08:28)
[2022-02-14] MEDS: Aspirin 81 MG Tab.EC PO SCH (08:28)
[2022-02-14] MEDS: Pantoprazole 40 MG Tab.CR PO SCH (08:29)
[2022-02-14] MEDS: Enoxaparin 40 MG/0.4 ML Syringe SUBCUT SCH (08:29)
[2022-02-14] MEDS: Insulin Regular, Human 100 Units/ML 3 ML Vial SUBCUT SCH ×3 (08:30→18:35)
[2022-02-14] MEDS: cefTRIAXone 1 GM in Sodium Chloride 0.9% 100 ML IV SCH (08:31)
[2022-02-14] MEDS: Nystatin Topical Powder 15 GM Bottle TOP SCH ×2 (08:31→20:08)
[2022-02-14] MEDS: Polyethylene Glycol 3350 Powder 17 GM Packet PO SCH (08:31)
[2022-02-14] MEDS: Rosuvastatin 10 MG Tab PO SCH (17:47)
[2022-02-14] MEDS: Tamsulosin 0.4 MG Cap.ER PO SCH (20:08)
[2022-02-14] MEDS: Acetaminophen 325 MG Tab PO PRN (20:08)
[2022-02-15] MEDS: metFORMIN 500 MG Tab PO SCH ×3 (06:35→17:48)
[2022-02-15] MEDS: Levothyroxine 50 MCG Tab PO SCH (06:35)
[2022-02-15] MEDS: Polyethylene Glycol 3350 Powder 17 GM Packet PO SCH (09:03)
[2022-02-15] MEDS: Aspirin 81 MG Tab.EC PO SCH (09:03)
[2022-02-15] MEDS: Glimepiride 2 MG Tab PO SCH (09:03)
[2022-02-15] MEDS: Pantoprazole 40 MG Tab.CR PO SCH (09:05)
[2022-02-15] MEDS: Insulin Regular, Human 100 Units/ML 3 ML Vial SUBCUT SCH ×3 (09:05→18:19)
[2022-02-15] MEDS: Enoxaparin 40 MG/0.4 ML Syringe SUBCUT SCH (09:06)
[2022-02-15] MEDS: Nystatin Topical Powder 15 GM Bottle TOP SCH ×2 (09:06→20:08)
[2022-02-15] MEDS: cefTRIAXone 1 GM in Sodium Chloride 0.9% 100 ML IV SCH (09:06)
[2022-02-15] MEDS: Acetaminophen 325 MG Tab PO PRN (14:24)
[2022-02-15] MEDS: Rosuvastatin 10 MG Tab PO SCH (17:48)
[2022-02-15] MEDS: Tamsulosin 0.4 MG Cap.ER PO SCH (20:08)
[2022-02-16] MEDS: Levothyroxine 50 MCG Tab PO SCH (05:58)
[2022-02-16] MEDS: metFORMIN 500 MG Tab PO SCH ×3 (06:01→17:48)
[2022-02-16] MEDS: Enoxaparin 40 MG/0.4 ML Syringe SUBCUT SCH (08:19)
[2022-02-16] MEDS: cefTRIAXone 1 GM in Sodium Chloride 0.9% 100 ML IV SCH (08:19)
[2022-02-16] MEDS: Pantoprazole 40 MG Tab.CR PO SCH (08:19)
[2022-02-16] MEDS: Polyethylene Glycol 3350 Powder 17 GM Packet PO SCH (08:19)
[2022-02-16] MEDS: Aspirin 81 MG Tab.EC PO SCH (08:20)
[2022-02-16] MEDS: Insulin Regular, Human 100 Units/ML 3 ML Vial SUBCUT SCH ×3 (08:20→18:08)
[2022-02-16] MEDS: Glimepiride 2 MG Tab PO SCH (08:20)
[2022-02-16] MEDS: Nystatin Topical Powder 15 GM Bottle TOP SCH ×2 (08:21→22:09)
[2022-02-16] MEDS: Acetaminophen 325 MG Tab PO PRN (14:19)
[2022-02-16] MEDS: Rosuvastatin 10 MG Tab PO SCH (17:49)
[2022-02-16] MEDS: Tamsulosin 0.4 MG Cap.ER PO SCH (21:12)
[2022-02-17] MEDS: metFORMIN 500 MG Tab PO SCH ×4 (05:16→17:28)
[2022-02-17] MEDS: Levothyroxine 50 MCG Tab PO SCH (05:17)
[2022-02-17] MEDS ORDERED: Magnesium Hydroxide 400 MG/5 ML Susp 30 ML Cup PO ONE (06:00)
[2022-02-17] MEDS: Enoxaparin 40 MG/0.4 ML Syringe SUBCUT SCH (08:14)
[2022-02-17] MEDS: Nystatin Topical Powder 15 GM Bottle TOP SCH ×2 (08:14→20:00)
[2022-02-17] MEDS: Polyethylene Glycol 3350 Powder 17 GM Packet PO SCH (08:14)
[2022-02-17] MEDS: Insulin Regular, Human 100 Units/ML 3 ML Vial SUBCUT SCH ×3 (08:15→18:45)
[2022-02-17] MEDS: Pantoprazole 40 MG Tab.CR PO SCH (08:15)
[2022-02-17] MEDS: Glimepiride 2 MG Tab PO SCH (08:15)
[2022-02-17] MEDS: Aspirin 81 MG Tab.EC PO SCH (08:15)
[2022-02-17] MEDS: cefTRIAXone 1 GM in Sodium Chloride 0.9% 100 ML IV SCH (08:16)
[2022-02-17] MEDS: Rosuvastatin 10 MG Tab PO SCH (17:28)
[2022-02-17] MEDS: Tamsulosin 0.4 MG Cap.ER PO SCH (20:00)
[2022-02-17] MEDS: Acetaminophen 325 MG Tab PO PRN (20:09)
[2022-02-17] MEDS: oxyCODONE 5 MG Tab PO PRN (20:10)
[2022-02-18] MEDS: metFORMIN 500 MG Tab PO SCH ×3 (05:34→11:55)
[2022-02-18] MEDS: Levothyroxine 50 MCG Tab PO SCH (05:34)
[2022-02-18] MEDS: Polyethylene Glycol 3350 Powder 17 GM Packet PO SCH (08:23)
[2022-02-18] MEDS: Insulin Regular, Human 100 Units/ML 3 ML Vial SUBCUT SCH ×2 (08:25→13:12)
[2022-02-18] MEDS: Glimepiride 2 MG Tab PO SCH (08:25)
[2022-02-18] MEDS: Aspirin 81 MG Tab.EC PO SCH (08:25)
[2022-02-18] MEDS: Pantoprazole 40 MG Tab.CR PO SCH (08:25)
[2022-02-18] MEDS: cefTRIAXone 1 GM in Sodium Chloride 0.9% 100 ML IV SCH (08:26)
[2022-02-18] MEDS: Enoxaparin 40 MG/0.4 ML Syringe SUBCUT SCH (08:26)
[2022-02-18] MEDS: Nystatin Topical Powder 15 GM Bottle TOP SCH (08:26)
[2022-02-18] MEDS: Acetaminophen 325 MG Tab PO PRN (09:39)
[2022-02-18] MEDS: oxyCODONE 5 MG Tab PO PRN (09:39)
[2022-02-18 12:11] VITALS: BP 143/84; PULSE 68
== END 2022-02-18 13:53 | DRG 690 ==
LOC: JD.ED 03:01 → JD.MS 06:47 → UNDOADMIN 06:47 → JD.MS 07:50
PROVIDERS: ADMIT Internal Medicine; ATTEND Internal Medicine
DX: N39.0 Urinary tract infection, site not specified (principal); E83.42 Hypomagnesemia; B96.89 Other specified bacterial agents as the cause of diseases classified elsewhere; E78.5 Hyperlipidemia, unspecified; E78.00 Pure hypercholesterolemia, unspecified; I10 Essential (primary) hypertension; H91.90 Unspecified hearing loss, unspecified ear; G47.30 Sleep apnea, unspecified; N40.0 Benign prostatic hyperplasia without lower urinary tract symptoms; Z86.73 Personal history of transient ischemic attack (TIA), and cerebral infarction without residual deficits; K59.00 Constipation, unspecified; E11.9 Type 2 diabetes mellitus without complications; E31.9 Polyglandular dysfunction, unspecified; M19.90 Unspecified osteoarthritis, unspecified site; F32.A Depression, unspecified; W19.XXXA Unspecified fall, initial encounter; E03.9 Hypothyroidism, unspecified; Z79.890 Hormone replacement therapy; B95.2 Enterococcus as the cause of diseases classified elsewhere; E66.9 Obesity, unspecified; I12.9 Hypertensive chronic kidney disease with stage 1 through stage 4 chronic kidney disease, or unspecified chronic kidney disease; N18.31 Chronic kidney disease, stage 3a; Z96.649 Presence of unspecified artificial hip joint; Z20.822 Contact with and (suspected) exposure to COVID-19; E11.22 Type 2 diabetes mellitus with diabetic chronic kidney disease; Z90.49 Acquired absence of other specified parts of digestive tract; Z68.37 Body mass index [BMI] 37.0-37.9, adult; Z79.84 Long term (current) use of oral hypoglycemic drugs; Z79.82 Long term (current) use of aspirin; Y92.009 Unspecified place in unspecified non-institutional (private) residence as the place of occurrence of the external cause; Z79.01 Long term (current) use of anticoagulants; Z86.16 Personal history of COVID-19; Z98.49 Cataract extraction status, unspecified eye; Z98.890 Other specified postprocedural states; Z79.899 Other long term (current) drug therapy; Z88.8 Allergy status to other drugs, medicaments and biological substances
CPT/HCPCS: 36415; 80053; 81001; 82550; 83036; 83735; 83880; 84443; 84484; 85025; 87086; 87088; 87186; 93005; 96365; 99284; A9270; J3475; U0002; 82947; 87641; 93010; 94667; 97116-GP; 97162-GP; 99222; 99232; 99239; J0696; J1650; J1815-GY

== ENCOUNTER 2022-06-05 11:23 | Emergency (ER) | payer MEDICARE, BC ==
[2022-06-05] MEDS ORDERED: Sodium Chloride 0.9% 10 ML Syringe FLUSH PRN (11:43)
[2022-06-05 16:17] VITALS: BP 145/70; PULSE 64
== END 2022-06-05 16:17 | disposition home or self-care (01) ==
LOC: SUPCPDRO 11:23 → JD.ED 11:23
DX: R07.89 Other chest pain (principal); R55 Syncope and collapse; E78.00 Pure hypercholesterolemia, unspecified; I10 Essential (primary) hypertension; M19.90 Unspecified osteoarthritis, unspecified site; N40.0 Benign prostatic hyperplasia without lower urinary tract symptoms; Z79.84 Long term (current) use of oral hypoglycemic drugs; Z79.82 Long term (current) use of aspirin; Z79.899 Other long term (current) drug therapy; Z86.73 Personal history of transient ischemic attack (TIA), and cerebral infarction without residual deficits; Z86.16 Personal history of COVID-19
CPT/HCPCS: 36415; 71045; 80053; 83735; 83880; 84484; 85025; 93005; 99285; J3490

== ENCOUNTER 2022-08-21 08:05 | Emergency (ER) | payer MEDICARE, BC ==
[2022-08-21] MEDS ORDERED: Sodium Chloride 0.9% 10 ML Syringe FLUSH PRN (08:31)
[2022-08-21 08:48] VITALS: BP 145/80; PULSE 71
[2022-08-21] MEDS ORDERED: Acetaminophen 325 MG Tab PO ONE (09:58)
== END 2022-08-21 13:06 | disposition home or self-care (01) ==
LOC: JD.ED 08:05
DX: R07.89 Other chest pain (principal); J06.9 Acute upper respiratory infection, unspecified; E78.00 Pure hypercholesterolemia, unspecified; I10 Essential (primary) hypertension; E11.9 Type 2 diabetes mellitus without complications; E66.9 Obesity, unspecified; Z68.29 Body mass index [BMI] 29.0-29.9, adult; Z79.899 Other long term (current) drug therapy; Z20.822 Contact with and (suspected) exposure to COVID-19
CPT/HCPCS: 36415; 71045; 80053; 83880; 84484; 85025; 86140; 93005; 99285; A9270; J3490; U0002

== ENCOUNTER 2022-08-31 04:43 | Emergency (ER) | payer MEDICARE, BC ==
[2022-08-31 04:53] VITALS: BP 139/73; PULSE 69
[2022-08-31] MEDS ORDERED: Sodium Chloride 0.9% 10 ML Syringe FLUSH PRN ×2 (05:06→06:45)
[2022-08-31] MEDS ORDERED: Aspirin 81 MG Tab.Chew PO ONE (05:09)
[2022-08-31] MEDS ORDERED: Sodium Chloride 0.9% 500 ML IV ONE (06:34)
[2022-08-31] MEDS ORDERED: Iopamidol 755 Mg/ML 100 ML Bottle IVPUSH ONE (06:45)
[2022-08-31] MEDS ORDERED: Sodium Chloride 0.9% 100 ML IV SCH (06:45)
[2022-08-31] MEDS ORDERED: Iopamidol 755 MG/ML 50 ML Bottle IVPUSH ONE (07:10)
== END 2022-08-31 08:50 | disposition home or self-care (01) ==
LOC: JD.ED 04:43
DX: R07.89 Other chest pain (principal); I12.9 Hypertensive chronic kidney disease with stage 1 through stage 4 chronic kidney disease, or unspecified chronic kidney disease; N18.30 Chronic kidney disease, stage 3 unspecified; E11.9 Type 2 diabetes mellitus without complications; E66.9 Obesity, unspecified; Z68.38 Body mass index [BMI] 38.0-38.9, adult; Z79.899 Other long term (current) drug therapy; Z79.84 Long term (current) use of oral hypoglycemic drugs; Z79.82 Long term (current) use of aspirin
CPT/HCPCS: 36415; 71045; 71275; 80053; 83735; 83880; 84484; 85025; 85379; 85610; 93005; 99285; J3490; J7030; Q9967

== ENCOUNTER 2022-09-22 08:21 | Emergency (ER) | payer MEDICARE, BC ==
[2022-09-22] MEDS ORDERED: Furosemide 40 MG/4 ML VIAL IVPUSH ONE (08:24)
[2022-09-22] MEDS ORDERED: Sodium Chloride 0.9% 10 ML Syringe FLUSH PRN (08:26)
[2022-09-22] MEDS ORDERED: Metoclopramide 10 MG/2 ML SDV IVPUSH ONE (08:35)
[2022-09-22] MEDS ORDERED: HYDROmorphone 0.5 MG/0.5 ML Syringe IVPUSH ONE (08:44)
[2022-09-22 09:43] LABS: HEMOGLOBIN A1C 6.8 %
[2022-09-22 10:07] LABS: ESTIMATED GFR 53 mL/min (>60)
[2022-09-22 14:01] VITALS: BP 128/81; PULSE 73
== END 2022-09-22 13:56 ==
LOC: JD.ED 08:21
DX: S20.211A Contusion of right front wall of thorax, initial encounter (principal); N40.1 Benign prostatic hyperplasia with lower urinary tract symptoms; R33.8 Other retention of urine; F03.90 Unspecified dementia, unspecified severity, without behavioral disturbance, psychotic disturbance, mood disturbance, and anxiety; I12.9 Hypertensive chronic kidney disease with stage 1 through stage 4 chronic kidney disease, or unspecified chronic kidney disease; E11.22 Type 2 diabetes mellitus with diabetic chronic kidney disease; N18.30 Chronic kidney disease, stage 3 unspecified; Z79.899 Other long term (current) drug therapy; Z79.82 Long term (current) use of aspirin; Z79.84 Long term (current) use of oral hypoglycemic drugs; Z86.16 Personal history of COVID-19
CPT/HCPCS: 36415; 71045; 71250; 74176; 80053; 81001; 82553; 83036; 83735; 83880; 84443; 84484; 85025; 85610; 85730; 86140; 93005; 96374; 96375; 99285; G0103; J1170; J1940; J2765; J3490

== ENCOUNTER 2022-11-15 16:55 | Emergency (ER) | payer MEDICARE, BC ==
[2022-11-15 17:54] LABS: ESTIMATED GFR 53 mL/min (>60)
[2022-11-15 21:15] VITALS: BP 166/85; PULSE 74
== END 2022-11-15 21:48 ==
LOC: JD.ED 16:55
DX: S06.5X0A Traumatic subdural hemorrhage without loss of consciousness, initial encounter (principal); I12.9 Hypertensive chronic kidney disease with stage 1 through stage 4 chronic kidney disease, or unspecified chronic kidney disease; E11.22 Type 2 diabetes mellitus with diabetic chronic kidney disease; N18.30 Chronic kidney disease, stage 3 unspecified; E66.9 Obesity, unspecified; Z79.899 Other long term (current) drug therapy; Z79.84 Long term (current) use of oral hypoglycemic drugs; Z79.82 Long term (current) use of aspirin; Z86.16 Personal history of COVID-19; W18.39XA Other fall on same level, initial encounter
CPT/HCPCS: 36415; 70450; 70450-26; 80053; 83735; 85025; 85610; 93005; 99285

== ENCOUNTER 2023-02-10 12:32 | Emergency (ER) | payer MEDICARE, BC ==
[2023-02-10 12:42] VITALS: BP 166/72; PULSE 83
== END 2023-02-10 16:09 | disposition home or self-care (01) ==
LOC: JD.ED 12:32
DX: S00.83XA Contusion of other part of head, initial encounter (principal); I12.9 Hypertensive chronic kidney disease with stage 1 through stage 4 chronic kidney disease, or unspecified chronic kidney disease; E11.22 Type 2 diabetes mellitus with diabetic chronic kidney disease; N18.30 Chronic kidney disease, stage 3 unspecified; N40.0 Benign prostatic hyperplasia without lower urinary tract symptoms; E66.9 Obesity, unspecified; Z68.30 Body mass index [BMI] 30.0-30.9, adult; Z86.73 Personal history of transient ischemic attack (TIA), and cerebral infarction without residual deficits; Z79.82 Long term (current) use of aspirin; Z79.84 Long term (current) use of oral hypoglycemic drugs; Z79.899 Other long term (current) drug therapy; Z86.16 Personal history of COVID-19; W18.09XA Striking against other object with subsequent fall, initial encounter; Y92.219 Unspecified school as the place of occurrence of the external cause
CPT/HCPCS: 70450; 70450-26; 99283

== ENCOUNTER 2023-06-14 04:06 | Emergency (ER) | payer MEDICARE, BC ==
[2023-06-14 04:22] LABS: BASOPHILS ABSOLUTE AUTO 0.05 K/mm3 (0.01-0.08); BASOPHILS PERCENT AUTO 1.2 % (0.1-1.2); EOSINOPHILS ABSOLUTE AUTO 0.24 K/mm3 (0.04-0.54); EOSINOPHILS PERCENT AUTO 5.8 (0.8-7.0); HEMATOCRIT 37.3 % (40.1-51.0); HEMOGLOBIN 12.3 gm/dl (13.7-17.5); IMMATURE GRAN ABSOLUTE AUTO 0.01 K/mm3 (0.00-0.10); IMMATURE GRAN PERCENT AUTO 0.2 % (<=1.0); LYMPHOCYTES ABSOLUTE AUTO 1.56 K/mm3 (1.32-3.57); MEAN PLATELET VOLUME 10.4 fl (9.4-12.3); MONOCYTES ABSOLUTE AUTO 0.67 K/mm3 (0.30-0.82); MONOCYTES PERCENT AUTO 16.3 % (5.3-12.2); NEUTROPHILS ABSOLUTE AUTO 1.58 K/mm3 (1.78-5.38); NEUTROPHILS PERCENT AUTO 38.5 % (34.0-67.9); PLATELET COUNT,PLT 173 K/mm3 (163-337); RED BLOOD CELL COUNT 3.73 M/mm3 (4.63-6.08); WHITE BLOOD CELL COUNT,WBC 4.11 K/mm3 (4.23-9.07)
[2023-06-14 04:41] LABS: PROTHROMBIN TIME 9.8 SECONDS (9.7-12.0)
[2023-06-14 04:43] LABS: PTT,PARTIAL THROMBOPLSTIN TIME 23.9 SECONDS (21.7-31.4)
[2023-06-14 04:45] LABS: ALANINE AMINOTRANSFERASE,ALT 21 U/L (16-63); ALBUMIN 3.4 g/dl (3.4-5.0); ALKALINE PHOSPHATASE 56 U/L (46-116); ASPARTATE AMNIOTRANSFERASE,AST 16 U/L (15-37); BILIRUBIN TOTAL 0.4 mg/dL (0.2-1.0); BLOOD UREA NITROGEN,BUN 23 mg/dL (7-18); BUN/CREATININE RATIO 17.7 (14-18); CALCIUM 9.3 mg/dL (8.5-10.1); CARBON DIOXIDE,CO2 28 mEq/L (21-32); CHLORIDE,CL 102 mEq/L (98-107); CREATININE 1.3 mg/dL (0.7-1.3); ESTIMATED GFR 53 mL/min (>60); GLUCOSE RANDOM 145 mg/dL (70-99); PROTEIN TOTAL,TP 6.7 g/dl (6.4-8.2); SODIUM,NA 140 mEq/L (136-145); TROPONIN I HIGH SENSITIVITY 23 pg/mL (<=76)
[2023-06-14 04:51] LABS: D-DIMER QUANTITATIVE 1.03 mg/L (0.19-0.50); INR < 0.93
[2023-06-14] MEDS ORDERED: Iopamidol 755 Mg/ML 100 ML Bottle IVPUSH ONE ×2 (05:26)
[2023-06-14] MEDS ORDERED: Sodium Chloride 0.9% 100 ML IV SCH (05:30)
[2023-06-14 06:40] LABS: APPEARANCE,URINE CLEAR (Clear); BILIRUBIN,URINE NEGATIVE (Negative); COLOR,URINE LIGHT YELLOW (Yellow); GLUCOSE,URINE NEGATIVE (Negative); KETONES,URINE NEGATIVE (Negative); LEUKOCYTE ESTERASE,URINE NEGATIVE (Negative); NITRITE,URINE NEGATIVE (Negative); OCCULT BLOOD,URINE NEGATIVE (Negative); PH,URINE 7.5 (5.0-8.0); PROTEIN,URINE TRACE (Negative); UROBILINOGEN,URINE 0.2 (0.2-1.0)
[2023-06-14 07:01] LABS: BACTERIA,URINE RARE /hpf (FEW); MUCUS,URINE NOT SEEN /hpf (FEW); RBC,URINE NOT SEEN /hpf (0-5); SQUAMOUS EPITHELIAL CELLS,UR 0-5 /hpf (0-5); WBC,URINE NOT SEEN /hpf (0-5)
[2023-06-14] MEDS ORDERED: Acetaminophen 325 MG Tab PO ONE (07:04)
[2023-06-14 07:22] VITALS: BP 170/84; PULSE 63
== END 2023-06-14 07:30 ==
LOC: JD.ED 04:06
DX: R53.1 Weakness (principal); D64.9 Anemia, unspecified; E78.00 Pure hypercholesterolemia, unspecified; K21.9 Gastro-esophageal reflux disease without esophagitis; I12.9 Hypertensive chronic kidney disease with stage 1 through stage 4 chronic kidney disease, or unspecified chronic kidney disease; E11.22 Type 2 diabetes mellitus with diabetic chronic kidney disease; N18.30 Chronic kidney disease, stage 3 unspecified; E66.9 Obesity, unspecified; Z79.01 Long term (current) use of anticoagulants; Z79.84 Long term (current) use of oral hypoglycemic drugs; Z79.899 Other long term (current) drug therapy
CPT/HCPCS: 36415; 70450; 70496; 70498; 80053; 81001; 84484; 85025; 85379; 85610; 85730; 93005; 99285; A9270; J3490; Q9967; 93010; 99284